=== PATIENT | male | born 1940 | race Two or more races ===

== ENCOUNTER 2024-12-02 08:10 | Inpatient (IN) | payer OTHER, SELFPAY ==
[2024-11-30] VITALS (7 sets, daily range): BP systolic 136–173; BP diastolic 81–97; BMI 27.5; BMI 25.8
[2024-11-30 14:15] LABS: % Basophils 0.5 % (0-2); % Eosinophils 0.9 % (0-6); % Immature Granulocytes 0.5 % (0-0.5); % Lymphocytes 13.5 % (20.5-51.1); % Monocytes 11.3 % (1.7-9.3); % Neutrophils 73.3 % (42.2-75.2); Absolute Eosinophils 0.1 10^3/uL (0-0.7); Absolute Lymphocytes 0.8 10^3/uL (1.2-3.4); Absolute Monocytes 0.7 10^3/uL (0.1-0.6); Absolute Neutrophils 4.2 10^3/uL (1.4-6.5); Hematocrit 45.4 % (39.0-52.0); Hemoglobin 15.2 g/dL (13.0-18.0); Mean Corp Hgb Conc. 33.5 g/dL (33.0-37.0); Mean Corpuscular Hgb 28.3 pg (27.0-31.0); Mean Corpuscular Volume 84.4 fL (80.0-94.0); Mean Platelet Volume 9.9 fL (7.4-10.4); Nucleated Red Blood Cells % 0 % (-); Platelet Count 149 10^3/uL (130-400); Red Blood Cell Count 5.38 10^6/uL (4.70-6.10); Red Cell Dist. Width 13.9 % (11.5-14.5); White Blood Cell Count 5.8 10^3/uL (4.8-10.8)
[2024-11-30 14:27] LABS: Urine Albumin 2+ (Neg - Trace); Urine Bilirubin Negative (Negative); Urine Character Clear (Clear); Urine Color Yellow; Urine Glucose Negative (Negative); Urine Ketone Negative (Negative); Urine Leukocyte 1+ (Negative); Urine Nitrite Negative (Negative); Urine Occult Blood 3+ (Negative); Urine Specific Gravity 1.015 (<1.030); Urine Urobilinogen Negative (Neg - 1+); Urine pH 6.5 (5.0-9.0)
[2024-11-30 14:30] LABS: COVID-19 Antigen Negative (Negative)
[2024-11-30 14:34] LABS: Urine Mucus Few
[2024-11-30 14:35] LABS: Urine Hyaline Cast 0-2 /LPF (0-2); Urine Squamous Cell 16-20 /LPF (Few)
[2024-11-30 14:36] LABS: Urine Red Blood Cell 26-30 /HPF (0-2)
[2024-11-30 14:38] LABS: Urine Bacteria Moderate (Negative)
[2024-11-30 14:38] LABS: ALT (SGPT) 46 U/L (0-50); AST (SGOT) 44 U/L (17-59); Albumin 4.2 g/dl (3.5-5.0); Alkaline Phosphatase 77 U/L (38-126); Blood Urea Nitrogen 20 mg/dl (9-20); Calcium 9.3 mg/dl (8.4-10.2); Carbon Dioxide 29 mmol/L (22-30); Chloride 105 mmol/L (98-107); Estimated Creatinine Clearance 38 ml/min; Glucose 99 mg/dl (70-99); Magnesium 2.1 mg/dl (1.6-2.3); Potassium 4.3 mmol/L (3.5-5.1); Sodium 142 mmol/L (135-145); Total Protein 6.6 g/dl (6.3-8.2); eGFR 54.17
[2024-11-30] MEDS: TYLENOL 650 MG PO ×2 (15:24→22:18)
--- NOTE | 2024-11-30 15:24 | ED.GENMED ---
History of Present Illness
General
Chief Complaint: Weakness
Source: patient
Exam Limitations: none
Time Seen by Provider: 11/30/24 14:13
Nursing documentation reviewed up to this point in time: agreed with
History of Present Illness
History of Present Illness:
Patient with history of dementia and Parkinson disease, frequent falls secondary to gait abnormality, presents to ED from home, accompanied by his , secondary to profound generalized weakness over the past 5 days, since losing balance and
falling backwards, landing on his buttocks 5 days ago. Patient did not hit his head, and it was witnessed by multiple faint members. Since then, patient has had intermittent neck and upper back pain. There was initial weakness noted, but had
improved until yesterday, when states that he had hard time weightbearing due to weakness. Patient was not complaining of pain at that time. Denies loss of appetite. Denies other recent illness. At the time of evaluation ED, patient is
alert and awake and has no complaints.
Review of Systems
Review of Systems
Allergies reviewed?: Yes
All Other Systems: ROS reviewed and negative except as documented in HPI and ROS
Constitutional: Reports no symptoms; Denies fever
Respiratory: Reports no symptoms; Denies cough
Cardiac: Reports no symptoms
ABD/GI: Reports no symptoms; Denies abdominal pain or vomiting
Musculoskeletal: Reports neck pain and back pain
Skin: Reports no symptoms
Neurological: Reports weakness; Denies dizzy or headache
Phy Exam
Physical Exam
Physical Exam:
Physical Exam
General: no apparent distress, not acutely ill. afebrile
Head: nc/at. eomi
Neck: supple. normal range of motion. no midline tenderness.
Heart: s1/s2 regular rate and rhythm
Lungs: no acute respiratory distress. clear bilaterally. chest wall nontender to palpation
Abdomen: normal bowel sounds. not tender.
Neuro: alert and oriented. no focal neurological deficits
Skin: no rash
Psychiatric: well kept. interactive and cooperative
Extremities: no edema. no calf tenderness.
Course
Orders/Labs/Results
Orders:
Orders
11/30/24 Breakfast
Regular
At Your Request: Non-Participating
11/30/24 14:05
Comprehensive Metabolic Panel Urgent
Magnesium Urgent
11/30/24 14:06
COVID-19 Antigen Urgent
Source: Nasal Swab
Complete Blood Count/With Diff Urgent
11/30/24 14:07
Urinalysis Reflex To Culture Urgent
Date Specimen was Collected: 11/30/24
Time Specimen was Collected: 13:57
Urine Microscopic Reflex Cult Urgent
Influenza A+B Rapid Molecular Urgent
STARLA Source: Nasal Swab
Specimen Description:
Date Specimen was Collected: 11/30/24
Time Specimen was Collected: 13:57
Urine Culture Urgent
STARLA Source: U
Specimen Description:
Date Specimen was Collected: 11/30/24
Time Specimen was Collected: 13:57
11/30/24 14:43
Acetaminophen [Tylenol] 650 mg PO NOW STA
Physical Therapy Consult [Pt Eval And Treat] Urgent
Activity Level: Ambulate
11/30/24 15:27
CR Chest - 2 Views Urgent
Comment:
Reason For Exam: weakness
11/30/24 16:42
Admit/Transfer Patient As Directed
Co-Sign Provider:
Level of Care: Observation services
Assign to:: Medical/Surgical
Physician / Group: [email or web address],lara
Diagnosis: ambulatory dysfunction
Code Status As Directed
Resuscitation Status: Full Code
PRN Pain Medication Management As Directed
May give lesser potent ordered pain med per pt: Yes
preference::
Protocol:: Medication orders for pain may be administered in a
manner that supports deferring to patient preference
when the pt is:
- Requesting an ordered lesser potent pain medication.
Least to most potent pain medications are defined
as: acetaminophen < NSAID < tramadol < opioids
(morphine, oxycodone, hydromorphone).
- Requesting a lesser dose of the same medication IF
ORDERED.
- Requesting a less intrusive route of administration
if both routes are prescribed by the provider (PO <
IV).
11/30/24 18:11
Acetaminophen [Tylenol] 650 mg PO Q4HPRN PRN
Bisacodyl [Dulcolax] 10 mg RECTAL [id number] PRN
Docusate W/Senna [Senokot-S] 1 tablet PO BIDPRN PRN
Enoxaparin Sodium [Lovenox] 40 mg SC QPM
HydrALAZINE [Apresoline] 5 mg IV Q6HPRN PRN
Polyethylene Glycol Powder [Miralax] 17 grams PO DAILYPRN PRN
11/30/24 18:11
Case Management Consult ONCE
Case Management Consult: Discharge Planning
Activity As Directed
Activity Level: As Tolerated
Vital Signs As Directed
Frequency: Per unit guidelines
Ot Eval And Treat Routine
DX Deep Vein Thrombosis Video Routine
Abnormal Lab Results
11/30/24 11/30/24
14:06 14:07
Absolute Lymphs (auto) 0.8 L 10^3/uL
(1.2-3.4)
Absolute Monos (auto) 0.7 H 10^3/uL
(0.1-0.6)
Lymphocytes % 13.5 L %
(20.5-51.1)
Monocytes % 11.3 H %
(1.7-9.3)
Ur Occult Blood Reflex 3+ A
(Negative)
Leukocyte Esterase Rfl 1+ A
(Negative)
Urine RBC 26-30 A /HPF
(0-2)
Urine Bacteria (Reflex) Moderate A
(Negative)
Urine Albumin (Reflex) 2+ A
(Neg - Trace)
11/30/24 14:06
11/30/24 14:05
Vital Signs
Initial and Last Documented VS:
Initial Vital Signs
Temp Pulse Resp BP Pulse Ox
98.2 F 91 16 167/95 98
11/30/24 12:24 11/30/24 12:24 11/30/24 12:24 11/30/24 12:24 11/30/24 12:24
Last Documented Vital Signs
Temp Pulse Resp BP Pulse Ox
98.5 F 78 18 162/83 97
11/30/24 18:20 11/30/24 18:20 11/30/24 18:20 11/30/24 18:20 11/30/24 18:20
MDM/Problems Addressed
MDM/Problems Addressed:
Patient with an unremarkable workup in ED, including blood work and urinalysis. Unfortunately, when evaluated by physical therapy, patient unable to bear weight and deemed unsafe to discharge home at this time. This is likely that he may have an
exacerbation of his underlying Parkinson's disease, but difficult to exclude some other entities. As such, patient will be admitted for further evaluation and treatment.
*Critical Care Note
Total Time (30-74mins, 75-104mins- exclusive of procedures): Not Applicable
ED Attending Note
-
Portions of this chart may have been created with voice recognition software.� Occasional wrong word or��sound alike� substitutions may have occurred due to the inherent limitations of voice recognition software.
Discharge Plan
Departure
Patient Disposition: Admit
Date of Disposition: 11/30/24
Time of Disposition: 16:21
Admit to: Med/Surg
Presentation/result/management discussed w/ accepting MD/DO: Hospitalist
Discharge Problem:
Weakness, Ambulatory dysfunction
Interventions
Interventions:
*Risk Screen - Suicide Last Done: 11/30/24 12:24
*General Assessment Last Done: 11/30/24 13:00
*Neglect/Abuse Screening Last Done: 11/30/24 12:24
*ED- Fall Risk Assessment Last Done: 11/30/24 13:00
*Nursing Disposition Last Done: 11/30/24 17:21
ED- Cardiac Assessment Last Done: 11/30/24 13:00
ED- Neurological Assessment Last Done: 11/30/24 13:00
ED- Pulmonary Assessment Last Done: 11/30/24 13:00
Discharge Date and Time
Discharge Date/Time: 11/30/24 18:10
--- NOTE | 2024-11-30 15:30 | EDRN ---
physical therapy currently at the pts bedside
--- NOTE | 2024-11-30 16:55 | HPS.HSE ---
Family Physician
-
Family Physician: Chris Maloney
Chief Complaint
-
Fall, weak and unable to wt bear
History of Present Illness
I could not get any information from the patient due to dementia
Information gathered by chart review and speaking with the ER staff and family
HPI
84M from Home with chr gait dysfunction , HX dementia and Parkinson disease, frequent falls secondary to gait abnormality, seen at ED from home, accompanied by his :
- reports losing balance and falling backwards, landing on his buttocks 5 days ago.
- reports profound generalized weakness over the past 5 days
- denied hit his head due to observed fall witnessed by multiple family members.
- Since then, patient has had intermittent neck and upper back pain.
- There was initial weakness noted, but had improved until yesterday
- states that he had hard time weightbearing due to weakness.
ROS:
Patient was not complaining of pain at that time.
Denies loss of appetite.
Denies other recent illness.
Medical History
Past Medical History
Past Medical History: Reports Dementia
Additional Past Medical History:
Prkinson dz, chr gait dysfunction, frequent falls
Past Surgical History: Reports Other
Additional Past Surgical History:
Not avaibale
Social History
Unable to obtain full social history at this time due to: Dementia
Family History
Family History: Not pertinent
Allergies / Home Medications
Allergies reflects when Allergies were last updated in [employer].
Home Medications with original date entered in [employer]
Allergy/Medication List:
Allergies
Allergy/AdvReac Type Severity Reaction Status Date / Time
No Known Allergies Allergy Verified 11/30/24 12:28
If medication reconciliation has not been performed, why?: Medication List N/A
Review of Systems
-
Constitutional: Reports No Symptoms
EENT: Reports No Symptoms
Respiratory: Reports No Symptoms
Cardiac: Reports No Symptoms
Abdomen/GI: Reports No Symptoms
: Reports No Symptoms
Musculoskeletal: Reports No Symptoms
Skin: Reports No Symptoms
Neurological: Reports No Symptoms
Endocrine: Reports No Symptoms
Hematologic/Lymphatic: Reports No Symptoms
Psych: Reports No Symptoms
Physical Exam
Vital Signs
Vital Signs
Temp Pulse Resp BP Pulse Ox
99.2 F 80 25 173/90 98
11/30/24 13:00 11/30/24 15:45 11/30/24 15:45 11/30/24 15:08 11/30/24 15:45
Physical Exam
General: Well Developed, Well Nourished and No Apparent Distress
HEENT: NormoCephalic, Moist mucous membranes and Atraumatic
Respiratory: Clear
Cardiac: S1/S2 and Regular Rhythm; No Murmur or Rub
GI: Soft, Non Tender, Non Distended and Normal Bowel Sounds; No Organomegaly
Rectal: Deferred by Provider
Musculoskeletal: No Clubbing, No Cyanosis and No Edema
Skin: No Rash
Neuro: Nonfocal/grossly intact
Laboratory Results
-
11/30/24 14:06
11/30/24 14:05
Laboratory Results
Total Bilirubin 1.0 mg/dl (0.2-1.3) 11/30/24 14:05
AST 44 U/L (17-59) 11/30/24 14:05
ALT 46 U/L (0-50) 11/30/24 14:05
Alkaline Phosphatase 77 U/L (38-126) 11/30/24 14:05
Data Reviewed
-
Lab Data: Labs Reviewed by me
Impression/Plan
-
Selected Entries
11/30/24
12:24 11/30/24
13:00
Temp 98.2 F
Pulse 91
Resp Rate 16
Blood pressure 167/95 154/82
SaO2 98 98
Oxygen Mode of Delivery Room air
Lab
11/30/24 11/30/24 11/30/24
14:05 14:06 14:07
WBC 5.8
Hgb 15.2
Plt Count 149
Sodium 142
Potassium 4.3
Chloride 105
Carbon Dioxide 29
BUN 20
Creatinine 1.3
eGFR 54.17
AST 44
ALT 46
Leukocyte Esterase Rfl 1+ A
Urine RBC 26-30 A
Urine WBC (Reflex) 6-10
Ur Squamous Epith Cells 16-20
Urine Bacteria (Reflex) Moderate A
Urine Albumin (Reflex) 2+ A
NEG Flu A & B
NEG Covid
CXR ; report pending
NO PRIOR hospitalist admission:
ASSESSMENT & PLAN
Pending Rx reconciliation
Weakness and general debility s/p observed falls by several family members: head not hit
Somewhat acute on chronic ambulatory dysfunction ; suspect deconditioning elderly
- Unremarkable workup in ED including blood work and urinalysis.
- NEG Covid. NE Flu A and B
- Seen in ED by PT suggest unsafe to be discharged home due to unable to bear weight
- PT
- CRM consult
Current Cr 1.3, eGFR 54 of unknown chronicity : acute vs CKD 2/3a
- Gentle IV NS and observe Cr and strength
HX dementia
HX Parkinson disease ; with any progression ?
Frequent falls secondary to gait abnormality
- Pending Rx reconciliation
DVT Px: LMWH
Full code
Obs MS
--- NOTE | 2024-11-30 17:20 | EDRN ---
this RN called the receiving unit and notified them that paper report was going to be tubed up
[2024-11-30] MEDS: NSS 1000 IV (18:55)
[2024-11-30] MEDS: LOVENOX 40 MG SC (18:55)
[2024-11-30] MEDS: COLACE 100 MG PO (20:57)
[2024-11-30] MEDS: ZOLOFT 50 MG PO (20:58)
[2024-11-30] MEDS: NAMENDA 10 MG PO (20:58)
[2024-11-30] MEDS: SINEMET 25-100 2 TABLET PO (20:58)
[2024-11-30] MEDS: ARICEPT 10 MG PO (20:58)
[2024-11-30] MEDS: XALATAN OPHTHALMIC SOLUTION 1 DROP BOTH EYES (21:10)
--- NOTE | 2024-11-30 22:40 | PTCARENOTE ---
Patient has a temp- 101.9 and given patient Tylenol as ordered. Donell CHARLTON made aware of temp.
[2024-12-01] MEDS: TYLENOL 650 MG PO ×2 (05:31→13:43)
[2024-12-01] MEDS: NSS 1000 IV ×2 (05:32→18:12)
--- NOTE | 2024-12-01 05:57 | W.PN.UPDATE ---
Update Note
Progress Note Update
Patient w/fevers t/o night 101.5 at 2300, treated w/Tylenol and temp 102.0 at 5:34 am, again treated w/Tylenol. Blood cx ordered, CBC and BMP ordered, awaiting results. CXR taken 11/30 @ 19:34 showed No acute disease of the chest. Mild cardiomegaly.
[2024-12-01 07:00] VITALS: BP 143/84
[2024-12-01 07:18] LABS: Hemoglobin 13.7 g/dL (13.0-18.0); Mean Corp Hgb Conc. 33.4 g/dL (33.0-37.0); Mean Corpuscular Hgb 28.1 pg (27.0-31.0); Mean Corpuscular Volume 84.2 fL (80.0-94.0); Mean Platelet Volume 10.2 fL (7.4-10.4); Platelet Count 144 10^3/uL (130-400); Red Blood Cell Count 4.87 10^6/uL (4.70-6.10); Red Cell Dist. Width 13.7 % (11.5-14.5); White Blood Cell Count 5.7 10^3/uL (4.8-10.8)
[2024-12-01] MEDS: SINEMET 25-100 2 TABLET PO ×3 (07:52→21:14)
[2024-12-01] MEDS: THERAGRAN 1 TABLET PO (07:53)
[2024-12-01] MEDS: COLACE 200 MG PO (07:53)
[2024-12-01] MEDS: SENOKOT 17.2 MG PO (07:53)
[2024-12-01] MEDS: NAMENDA 10 MG PO ×2 (07:53→20:51)
[2024-12-01 08:05] LABS: Blood Urea Nitrogen 18 mg/dl (9-20); Calcium 8.4 mg/dl (8.4-10.2); Carbon Dioxide 23 mmol/L (22-30); Chloride 107 mmol/L (98-107); Estimated Creatinine Clearance 50 ml/min; Glucose 91 mg/dl (70-99); Potassium 3.9 mmol/L (3.5-5.1); Sodium 137 mmol/L (135-145); eGFR > 60.00
[2024-12-01] MEDS: ROCEPHIN 1000 MG IV (10:32)
[2024-12-01] MEDS: STERILE WATER FOR INJECTION 10 ML IV (10:33)
--- NOTE | 2024-12-01 12:34 | W.PN.HOSP.TC ---
Today's Communication/Plan
-
Started Rocephin
Assessment / Plan
Assessment / Plan
Assessment/plan
Sepsis secondary to UTI
Patient meets sepsis criteria on admission
Heart rate 90
Temperature max 102
Source of infection is UTI
Chest x-ray shows no pneumonia
IV antibiotic in form of Rocephin
Blood culture pending
Urine culture pending
Status post fall - acute on chronic ambulatory dysfunction
Denies hitting head.
Fall precautions.
PT/OT consulted in the ER who recommended SNF.
Social service for discharge planning.
HX dementia
Continue Aricept-Namenda
HX Parkinson disease
Continue Sinemet
CODE STATUS: Full code
DVT prophylaxis: Lovenox
Diet: Regular diet
Total time spent on today's encounter was 55 minutes which included time spent in counseling the patient/family regarding diagnosis and treatment plan as listed above, goals of care, and symptom management. Case was discussed with nursing staff,
specialists, and care coordinators/case management. All labs and imaging personally reviewed by me. Remainder the time spent in detailed review of previous records, lab data, imaging, and other medical provider documentation.
Anticipated Discharge: 24 - 48 hours
Subjective/Interval History
-
Date of Service: December 01, 2024
Patient seen and examined at bedside.
Patient seen while eating breakfast.
Overnight patient had fever-blood culture and urine culture drawn
started on Rocephin
Objective Data
-
Labs:
Laboratory Results
12/01/24
07:06
WBC 5.7
Hgb 13.7
Hct 41.0
Plt Count 144
Sodium 137
Potassium 3.9
Chloride 107
Carbon Dioxide 23
BUN 18
Creatinine 1.1
Glucose 91
Calcium 8.4
Vital Signs:
Vital Signs
Temp Pulse Resp BP Pulse Ox
99.5 F 85 20 143/84 96
12/01/24 07:00 12/01/24 07:00 12/01/24 07:00 12/01/24 07:00 12/01/24 07:00
I&O
11/30/24 12/01/24 12/02/24
06:59 06:59 06:59
Intake Total 1200 / 1200
Balance 1200 / 1200
Physical Exam
-
General: Well Developed, Well Nourished, No Apparent Distress and Comfortable
HEENT: Normocephalic, Atraumatic, Moist Mucous Membranes, No Ptosis, PERRLA and Nose Appears Normal
Respiratory: Clear to Auscultation and Non Labored Respirations
Cardiac: Regular Rhythm and S1/S2
Breast: Deferred by me
GI: Soft, Nontender, Nondistended and Normal Bowel Sounds
Genito-urinary: No Costovertebral Tender
Musculoskeletal: No Clubbing, No Cyanosis and No Edema
Skin: Warm
Neuro: Awake, Alert, No Motor Deficits and Other
Psych: Calm
Data Reviewed
-
Diagnostic Radiology: Image personally visualized and interpreted and Report Reviewed by me
CT Scan: Image personally visualized and interpreted and Report Reviewed by me
Ultrasound: Image personally visualized and interpreted and Report Reviewed by me
MRI: Image personally visualized and interpreted and Report Reviewed by me
Medical Tests (Nuc Med, Echo etc): Image personally visualized and interpreted and Report Reviewed by me
Labs: Labs Reviewed by me
Old Records: Reviewed
[2024-12-01 15:00] VITALS: BP 158/90
[2024-12-01] MEDS: TORADOL 30 MG IV (15:32)
[2024-12-01] MEDS: LOVENOX 40 MG SC (17:12)
[2024-12-01] MEDS: XALATAN OPHTHALMIC SOLUTION 1 DROP BOTH EYES (17:19)
[2024-12-01] MEDS: ARICEPT 10 MG PO (20:50)
[2024-12-01] MEDS: COLACE 100 MG PO (20:51)
[2024-12-01] MEDS: ZOLOFT 50 MG PO (20:51)
[2024-12-01 23:30] VITALS: BP 129/64
[2024-12-02] MEDS: TYLENOL 650 MG PO (03:54)
[2024-12-02] MEDS: NSS 1000 IV ×2 (06:10→20:55)
[2024-12-02 08:07] VITALS: BP 147/93
[2024-12-02 08:24] LABS: Hemoglobin 13.2 g/dL (13.0-18.0); Mean Corpuscular Hgb 28.3 pg (27.0-31.0); Mean Corpuscular Volume 85.7 fL (80.0-94.0); Mean Platelet Volume 10.9 fL (7.4-10.4); Platelet Count 130 10^3/uL (130-400); Red Blood Cell Count 4.67 10^6/uL (4.70-6.10); Red Cell Dist. Width 13.8 % (11.5-14.5); White Blood Cell Count 4.4 10^3/uL (4.8-10.8)
[2024-12-02 08:40] LABS: Blood Urea Nitrogen 23 mg/dl (9-20); Calcium 8.1 mg/dl (8.4-10.2); Carbon Dioxide 23 mmol/L (22-30); Chloride 107 mmol/L (98-107); Estimated Creatinine Clearance 46 ml/min; Glucose 85 mg/dl (70-99); Sodium 138 mmol/L (135-145); eGFR 59.63
[2024-12-02] MEDS: THERAGRAN 1 TABLET PO (08:59)
[2024-12-02] MEDS: COLACE 200 MG PO (08:59)
[2024-12-02] MEDS: NAMENDA 10 MG PO ×2 (08:59→20:55)
[2024-12-02] MEDS: SENOKOT 17.2 MG PO (08:59)
[2024-12-02] MEDS: SINEMET 25-100 2 TABLET PO ×3 (08:59→21:09)
[2024-12-02] MEDS: ROCEPHIN 1000 MG IV (09:01)
[2024-12-02] MEDS: STERILE WATER FOR INJECTION 10 ML IV (09:01)
[2024-12-02 10:33] VITALS: BP 165/89; PULSE 94; O2SAT 97
[2024-12-02 10:46] VITALS: BP 165/89; PULSE 94; O2SAT 97
--- NOTE | 2024-12-02 13:00 | W.PN.HOSP.TC ---
Today's Communication/Plan
-
Patient still running fever
Assessment / Plan
Assessment / Plan
Assessment/plan
Sepsis secondary to UTI
Patient meets sepsis criteria on admission
Heart rate 90
Temperature max 102
Source of infection is UTI
Chest x-ray shows no pneumonia
IV antibiotic in form of Rocephin
Blood culture pending
Urine culture pending
Status post fall - acute on chronic ambulatory dysfunction
Denies hitting head.
Fall precautions.
PT/OT consulted in the ER who recommended SNF.
Social service for discharge planning.
HX dementia
Continue Aricept-Namenda
HX Parkinson disease
Continue Sinemet
CODE STATUS: Full code
DVT prophylaxis: Lovenox
Diet: Regular diet
Total time spent on today's encounter was 55 minutes which included time spent in counseling the patient/family regarding diagnosis and treatment plan as listed above, goals of care, and symptom management. Case was discussed with nursing staff,
specialists, and care coordinators/case management. All labs and imaging personally reviewed by me. Remainder the time spent in detailed review of previous records, lab data, imaging, and other medical provider documentation.
Anticipated Discharge: Within 24 hours
Subjective/Interval History
-
Date of Service: December 02, 2024
Patient seen and examined at bedside, denies any chest pain or shortness of breath, no abdominal pain, no nausea, no vomiting, no diarrhea or constipation.
Still with mild degree fever overnight blood cultures are negative so far
Objective Data
-
Labs:
Laboratory Results
12/02/24
07:18
WBC 4.4 L
Hgb 13.2
Hct 40.0
Plt Count 130
Sodium 138
Potassium 4.0
Chloride 107
Carbon Dioxide 23
BUN 23 H
Creatinine 1.2
Glucose 85
Calcium 8.1 L
Vital Signs:
Vital Signs
Temp Pulse Resp BP Pulse Ox
99.8 F 77 18 147/93 97
12/02/24 11:26 12/02/24 08:07 12/02/24 08:07 12/02/24 08:07 12/02/24 08:07
I&O
12/01/24 12/02/24 12/03/24
06:59 06:59 06:59
Intake Total 1200 / 1200 480 / 480
Output Total 200 / 200
Balance 1200 / 1200 280 / 280
Physical Exam
-
General: Well Developed, Well Nourished, No Apparent Distress and Comfortable
HEENT: Normocephalic, Atraumatic, Moist Mucous Membranes, No Ptosis, PERRLA and Nose Appears Normal
Respiratory: Clear to Auscultation and Non Labored Respirations
Cardiac: Regular Rhythm and S1/S2
Breast: Deferred by me
GI: Soft, Nontender, Nondistended and Normal Bowel Sounds
Genito-urinary: No Costovertebral Tender
Musculoskeletal: No Clubbing, No Cyanosis and No Edema
Skin: Warm
Neuro: Awake, Alert, No Motor Deficits and Other
Psych: Calm
[2024-12-02] MEDS: TORADOL 30 MG IV (15:43)
[2024-12-02] MEDS: APRESOLINE 5 MG IV (15:45)
[2024-12-02 15:57] VITALS: BP 190/104
[2024-12-02 16:21] VITALS: BP 173/91
--- NOTE | 2024-12-02 16:44 | CM ---
Placed a call to patient's , Jenny to obtain information for assessment. She stated that she lives in a single, two story home with no steps to enter and her son and daughter in law live on the property next door as well. Patient was needing
assistance with bathing and dressing but was able to do some of his own personal care and toileting with reminders. He has a stair glide, a shower chair and a w/c but was ambulating independently. Patient's does the communications program manager, cooking,
cleaning and all laundry. Her children also assist with caring for patient and whatever they need as far as communications program manager and transportation. Patient has been to a SNF in the past at [facility] and had a good experience there. Patient's
was also agreeable to referrals being sent out to [facility] and [facility]. Patient has had VN in the past as well.
Patient has a prescription plan and uses, [facility] in [place] for his medications.
His PCP is, Chris Marcum.
Will make referrals and f/u with patient's .
Plan: Case management will continue to follow and assist with discharge planning. SNF when stable.
[2024-12-02] MEDS: XALATAN OPHTHALMIC SOLUTION 1 DROP BOTH EYES (17:12)
[2024-12-02] MEDS: LOVENOX 40 MG SC (17:12)
[2024-12-02] MEDS: ARICEPT 10 MG PO (20:54)
[2024-12-02] MEDS: COLACE 100 MG PO (20:54)
[2024-12-02] MEDS: ZOLOFT 50 MG PO (20:55)
--- NOTE | 2024-12-02 21:23 | W.PN.UPDATE ---
Update Note
Progress Note Update
Patient is complaining of SOB, wheezing. bp 173/91, hr 99, SPO2 96% on RA, febrile with temp 102.9
-On assessment, patient noted with cough, coarse lung sound and audible inspiratory and expiratory wheezing.
-Chest x-ray, covid, flu, duo nebs, PRN Robitussin and IV Tylenol ordered.
-Patient still wheezing with no changes after neb treatment, will give on time dose of IV Decadron 4mg now.
-Covid and flu (Neg )
Chest x-ray result shows
-There is a new opacity projecting over the mid/lower left lung which likely represents pneumonia
-Will start the patient on azithromycin 500 mg IV q 24 hrs.
[2024-12-02] MEDS: DUONEB 3 ML INH (22:06)
[2024-12-02] MEDS: ROBITUSSIN DM 10 ML PO (22:42)
[2024-12-02] MEDS: DECADRON 4 MG IV (22:42)
[2024-12-02 22:47] LABS: COVID-19 Antigen Negative (Negative)
[2024-12-02] MEDS: OFIRMEV 100 IV (23:03)
[2024-12-02] MEDS: ZITHROMAX INFUSION 250 IV (23:56)
[2024-12-03] VITALS (9 sets, daily range): BP systolic 133–215; BP diastolic 71–133; PULSE 2–127; BMI 27.1
--- NOTE | 2024-12-03 03:25 | PTCARENOTE ---
Pt noted to have audible wheezing and very harsh cough. Discussed care with condominium association manager PROTECTIVE SIGNAL OPERATOR. Pt had CXR, Zithromax Iv, dexamethasone IV and Neb tx. IV Tylenol given for T of 102.9 with (+) results. Covid and Flu swabs sent as ordered. Cold tx applied and
2L O2 via NC applied. No acute distress noted thus far. Will continue to monitor.
[2024-12-03 08:59] LABS: Hemoglobin 14.4 g/dL (13.0-18.0); Mean Corp Hgb Conc. 32.7 g/dL (33.0-37.0); Mean Corpuscular Hgb 28.2 pg (27.0-31.0); Mean Corpuscular Volume 86.3 fL (80.0-94.0); Mean Platelet Volume 10.7 fL (7.4-10.4); Platelet Count 147 10^3/uL (130-400); Red Cell Dist. Width 13.8 % (11.5-14.5); White Blood Cell Count 4.1 10^3/uL (4.8-10.8)
[2024-12-03] MEDS: NSS 1000 IV (09:05)
[2024-12-03] MEDS: SINEMET 25-100 2 TABLET PO ×3 (09:05→21:15)
[2024-12-03] MEDS: THERAGRAN 1 TABLET PO (09:06)
[2024-12-03] MEDS: COLACE 200 MG PO (09:06)
[2024-12-03] MEDS: NAMENDA 10 MG PO ×2 (09:06→21:15)
[2024-12-03] MEDS: SENOKOT 17.2 MG PO (09:06)
[2024-12-03] MEDS: ROCEPHIN 1000 MG IV (09:07)
[2024-12-03] MEDS: STERILE WATER FOR INJECTION 10 ML IV (09:07)
[2024-12-03 09:44] LABS: Blood Urea Nitrogen 21 mg/dl (9-20); Calcium 8.2 mg/dl (8.4-10.2); Carbon Dioxide 23 mmol/L (22-30); Chloride 108 mmol/L (98-107); Estimated Creatinine Clearance 50 ml/min; Glucose 105 mg/dl (70-99); Potassium 4.2 mmol/L (3.5-5.1); Sodium 140 mmol/L (135-145); eGFR > 60.00
--- NOTE | 2024-12-03 11:46 | CM ---
Received call from Coral in admissions at [facility] who stated that is patient is ready today, she can accept. Spoke with attending who stated that patient not medically cleared for discharge quite yet. Spoke with Coral who stated to call her on
the day of discharge to determine bed availability. She will offer a bed if she has one as she has accepted patient. Will need to get auth.
Plan: Case management will continue to follow and assist with discharge planning. SNF when stable.
--- NOTE | 2024-12-03 13:48 | W.PN.HOSP.TC ---
Today's Communication/Plan
-
Started Zithromax
Assessment / Plan
Assessment / Plan
Assessment/plan
Sepsis secondary to pneumonia /UTI
Patient meets sepsis criteria on admission
Heart rate 90
Temperature max 102
Source of infection is UTI/community-acquired pneumonia
Initial chest x-ray shows no pneumonia
Initially started on IV antibiotic in form of Rocephin
Blood culture negative to date
Urine culture negative to date
12/03
Developed coughing and shortness of breath overnight.
Still with fever.
X-ray shows new opacity projecting over the mid/lower left lung which likely represents pneumonia.
CT chest shows:
1. SEVERE PNEUMONIA in the LEFT UPPER LOBE and LEFT LOWER LOBE.
2. Mild pneumonia in the right upper lobe.
3. Mild cardiomegaly.
4. Moderate calcific atherosclerotic plaque in the coronary arteries.
5. Severe calcific atherosclerotic plaque in the thoracic aorta.
6. 2.4 cm low-attenuation lesion in the liver containing peripheral calcification. Diagnostic possibilities are (1) a primary or metastatic hepatic tumor, (2) a hepatic abscess, or (3) a complex cyst or chronic intrahepatic hematoma.
Azithromycin added to Rocephin
Status post fall - acute on chronic ambulatory dysfunction
Denies hitting head.
Fall precautions.
PT/OT consulted in the ER who recommended SNF.
Social service for discharge planning.
HX dementia
Continue Aricept-Namenda
HX Parkinson disease
Continue Sinemet
CODE STATUS: Full code
DVT prophylaxis: Lovenox
Diet: Regular diet
Family communication: Discussed with at bedside.
Total time spent on today's encounter was 55 minutes which included time spent in counseling the patient/family regarding diagnosis and treatment plan as listed above, goals of care, and symptom management. Case was discussed with nursing staff,
specialists, and care coordinators/case management. All labs and imaging personally reviewed by me. Remainder the time spent in detailed review of previous records, lab data, imaging, and other medical provider documentation.
Anticipated Discharge: 24 - 48 hours
Subjective/Interval History
-
Date of Service: December 03, 2024
Patient seen and examined at bedside, patient complained of shortness of breath on coughing overnight, associated with wheezing.
The chest x-ray shows pneumonia.
Started on Zithromax.
CT chest done today shows :
1. SEVERE PNEUMONIA in the LEFT UPPER LOBE and LEFT LOWER LOBE.
2. Mild pneumonia in the right upper lobe.
3. Mild cardiomegaly.
4. Moderate calcific atherosclerotic plaque in the coronary arteries.
5. Severe calcific atherosclerotic plaque in the thoracic aorta.
6. 2.4 cm low-attenuation lesion in the liver containing peripheral calcification. Diagnostic possibilities are (1) a primary or metastatic hepatic tumor, (2) a hepatic abscess, or (3) a complex cyst or chronic intrahepatic hematoma.
Objective Data
-
Labs:
Laboratory Results
12/03/24
07:50
WBC 4.1 L
Hgb 14.4
Hct 44.0
Plt Count 147
Sodium 140
Potassium 4.2
Chloride 108 H
Carbon Dioxide 23
BUN 21 H
Creatinine 1.1
Glucose 105 H
Calcium 8.2 L
Vital Signs:
Vital Signs
Temp Pulse Resp BP Pulse Ox
99.1 F 89 20 147/91 99
12/03/24 07:30 12/03/24 07:30 12/03/24 07:30 12/03/24 07:30 12/03/24 09:01
I&O
12/02/24 12/03/24 12/04/24
06:59 06:59 06:59
Intake Total 480 / 480 540 / 540
Output Total 200 / 200 100 / 100
Balance 280 / 280 440 / 440
Physical Exam
-
General: Well Developed, Well Nourished, No Apparent Distress and Comfortable
HEENT: Normocephalic, Atraumatic, Moist Mucous Membranes, No Ptosis, PERRLA and Nose Appears Normal
Respiratory: Wheezes, Rales, Rhonchi, Crackles and Non Labored Respirations
Cardiac: Regular Rhythm and S1/S2
Breast: Deferred by me
GI: Soft, Nontender, Nondistended and Normal Bowel Sounds
Genito-urinary: No Costovertebral Tender
Musculoskeletal: No Clubbing, No Cyanosis and No Edema
Skin: Warm
Neuro: Awake, Alert, No Motor Deficits and Other
Psych: Calm
Data Reviewed
-
Diagnostic Radiology: Image personally visualized and interpreted and Report Reviewed by me
CT Scan: Image personally visualized and interpreted and Report Reviewed by me
Ultrasound: Image personally visualized and interpreted and Report Reviewed by me
MRI: Image personally visualized and interpreted and Report Reviewed by me
Medical Tests (Nuc Med, Echo etc): Image personally visualized and interpreted and Report Reviewed by me
Labs: Labs Reviewed by me
Old Records: Reviewed
[2024-12-03] MEDS: DUONEB 3 ML INH ×3 (13:56→19:31)
[2024-12-03] MEDS: TYLENOL 650 MG PO ×2 (15:09→21:17)
--- NOTE | 2024-12-03 16:06 | PTCARENOTE ---
Pt AAO x3; forgetful at times. LEBLANC; able to turn self with encouragement. BP currently 215/133;; pt with (+) audible wheezing/tachypneic; pulse ox 0n nc 2 lpm 97%, pt frequently removes NC. Dr. Sanchez notified of pt's resp status. Abd large,
soft, lucero PO, appetite poor. Incont urine; condom cath # 25 P/I. Temp 102.9 PO; Tylenol 650 mg PO given; will continue to monitor.
--- NOTE | 2024-12-03 16:21 | CON.PUL ---
Consultation
Consultation Request
Date/Time Consultation Requested: 12/03/2024
Date/Time Consultation Performed: 12/02/2024
Requesting Provider: Yaima Sanchez
Performing Provider: Nafisa Jones
Reason for Consultation: Shortness of breath
Medical History
-
Chief Complaint: Shortness of breath
History of Present Illness:
Patient is a84 y/o gentleman who was brought to the hospital for weakness and falls. He was noted to have Pneumonia and pyuria. He was started on Rocephin. Overnight, he became more short of breath with wheezing. CT was performed which was
suggestive of multifocal pneumonia. Due to increased wheezing and increased work of breathing, pulmonary consult was requested for further input.
Patient unable to provide any history, information obtained from at bedside.
Past Medical History: Reports Dementia
Additional Past Medical History:
Prkinson dz, chr gait dysfunction, frequent falls
Past Surgical History: Reports Other
Additional Past Surgical History:
Not avaibale
Social History
Unable to obtain full social history at this time due to: Dementia
Family History
Family History: Not pertinent
Allergies / Home Medications
Allergies / Home Medications
Allergies
Allergy/AdvReac Type Severity Reaction Status Date / Time
No Known Allergies Allergy Verified 11/30/24 12:28
Home Medications
�Medication �Instructions �Recorded �Confirmed �Last Taken �Type
carbidopa 25 mg-levodopa 100 mg 2 tab PO TID Multiple Sclerosis 11/30/24 11/30/24 11/29/24 History
tablet
docusate sodium 100 mg capsule 100 mg PO HS Gastrointestinal Issue 11/30/24 11/30/24 11/29/24 History
(Colace)
docusate sodium 100 mg capsule 200 mg PO DAILY Gastrointestinal 11/30/24 11/30/24 11/29/24 History
(Colace) Issue
donepezil 10 mg tablet 10 mg PO HS Neurological Condition 11/30/24 11/30/24 11/29/24 History
latanoprost 0.005 % eye drops 1 drp BOTH EYES QPM Eye Condition 11/30/24 11/30/24 11/29/24 History
memantine 10 mg tablet 10 mg PO BID Neurological Condition 11/30/24 11/30/24 11/29/24 History
sennosides 8.6 mg tablet (senna) 17.2 mg PO HS Gastrointestinal 11/30/24 11/30/24 11/29/24 History
Issue
sertraline 50 mg tablet 50 mg PO HS Multiple Sclerosis 11/30/24 11/30/24 11/29/24 History
therapeutic multivitamin 1 tab PO DAILY Supplement 11/30/24 11/30/24 11/29/24 History
Review of Systems
Vitals / Labs / Diagnostic Testing
Vital Signs
Temp Pulse Resp BP Pulse Ox
101.0 F H 126 20 187/131 97
12/03/24 16:09 12/03/24 16:09 12/03/24 16:09 12/03/24 16:09 12/03/24 16:06
Lab Data
12/03/24 07:50
12/03/24 07:50
Microbiology
12/01/24 07:28 Blood/Venous Blood Culture - Preliminary
No Growth in 48 hours- Final report to follow
12/01/24 07:06 Blood/Venous Blood Culture - Preliminary
No Growth in 48 hours- Final report to follow
12/03/24 03:17 Nasal Swab Influenza Types A & B (YOANDY) - Final
Negative for Influenza A & B, NAAT
Negative results must be combined with clinical observations
and patient history.
Nucleic Acid Amplification test (NAAT)performed on the
[employer] platform.
11/30/24 14:07 Urine Urine Culture - Final
11/30/24 14:07 Nasal Swab Influenza Types A & B (YOANDY) - Final
Negative for Influenza A & B, NAAT
Negative results must be combined with clinical observations
and patient history.
Nucleic Acid Amplification test (NAAT)performed on the
[employer] platform.
Diagnostic Testing:
Physical Exam
-
HEENT: Normocephalic
Cardiovascular: Regular Rhythm
Respiratory: Wheeze (diffuse wheezing ) and Rhonchi
GI: Soft and Non Distended
Neurology: Awake and Alert
Skin: Warm
General: Comfortable
Assessment
-
#1. Multifocal Pneumonia, influenza screen negative. Blood culture for 48 hours negative. COVID-19 screen negative.
-Continue current antibiotics, Rocephin and Azithromycin
-Sputum culture, if able to produce
-Speech/swallow evaluation, as aspiration risk
#2. Acute bronchospasm, likely related to #1
-Solumedrol 80 mg IV stat followed by 40 mg q 12 hrs
-Duoneb qid and Albuterol PRN
-No known h/o COPD/Asthma but has long standing smoking history, might have underlying COPD
-If does not improve in coming hours, low threshold to initiate BIPAP
Other medical diagnoses:
-Parkinsonism
-Dementia
Total time spent on this consultation/encounter __65__ minutes which includes review of history, physical exam, medications, laboratory data, personal review of imaging, extensive review of outpatient records, discussion with care team and
respiratory therapy.
Data:
CT Chest 12/2024: 1. SEVERE PNEUMONIA in the LEFT UPPER LOBE and LEFT LOWER LOBE.
2. Mild pneumonia in the right upper lobe.
3. Mild cardiomegaly.
4. Moderate calcific atherosclerotic plaque in the coronary arteries.
5. Severe calcific atherosclerotic plaque in the thoracic aorta.
6. 2.4 cm low-attenuation lesion in the liver containing peripheral calcification. Diagnostic possibilities are (1) a primary or metastatic hepatic tumor, (2) a hepatic abscess, or (3) a complex cyst or chronic intrahepatic hematoma.
[2024-12-03] MEDS: SOLU-MEDROL PF 80 MG IV (16:49)
[2024-12-03] MEDS: FLUSH (NSS) 1 FLUSH IV ×2 (16:50→17:20)
--- NOTE | 2024-12-03 17:05 | SUR.PHASEI ---
Pt with increased SOB/wheezing; vomited mod amts lt pink/mucoid secretions. Pt given Solumedrol 80 mg IV; resp tx given. BP 209/130; HR 128; RR 32. Legs sl mottled. Dr. Sanchez up to see pt; pt for transfer to IMU. Will continue to monitor.
--- NOTE | 2024-12-03 17:12 | W.PN.UPDATE ---
Update Note
Progress Note Update
4:50
Patient vomited and became tachypneic.
Patient seen and examined at bedside, increased work of breathing.
at bedside.
Patient placed on BiPAP and plan to transfer to IMU.
Discussed with pulmonology team.
Discussed with at bedside regarding CODE STATUS, patient is DNI/DNR.
Patient received steroid, ordered Zofran,
[2024-12-03] MEDS: ZOFRAN 4 MG IV (17:20)
[2024-12-03] MEDS: LOVENOX 40 MG SC (17:21)
[2024-12-03] MEDS: XALATAN OPHTHALMIC SOLUTION 1 DROP BOTH EYES (17:21)
--- NOTE | 2024-12-03 18:16 | PHA.VAN.IN ---
Assessment
- Assessment
Renal Function: Appears similar to baseline
Concomitant Antimicrobials: ZOSYN
- Previous Dosing Experience
Previous Regimen: NONE
AUC Dosing Plan
- Dosing Variables
Dosing Weight (kg): 79.2
Dosing CrCl (ml/min): 50
Vd coefficient (L/kg): 0.7
- Empiric Dosing
Initial / Loading Dose: 1750MG
Maintenance Regimen: 1250MG IV Q24H
Estimated AUC (mcg*h/mL): 508
Estimated Peak (mcg*h/mL): 33.8
Estimated Trough (mcg/ml): 12.0
Estimated Half Life (H): 15.1
Pharmacokinetics Vancomycin I
- -
Patient Age: 84
Patient Sex: Male
Vancomycin Day #: 1
Indication: Pulmonary/Respiratory
Requesting Provider: YOUNG
Height / Weight:
Height 5 ft 9 in
Actual Weight 79.18 kg
- Vital Signs / Lab Results
Temp Pulse Resp BP Pulse Ox
100.3 F 128 32 209/130 95
12/03/24 17:05 12/03/24 17:05 12/03/24 17:05 12/03/24 17:05 12/03/24 17:05
Lab Results - Hematology
12/01/24 12/02/24 12/03/24
07:06 07:18 07:50
WBC 5.7 4.4 L 4.1 L
Lab Results - Chemistry
12/01/24 12/02/24 12/03/24
07:06 07:18 07:50
BUN 18 23 H 21 H
Creatinine 1.1 1.2 1.1
Estimated Creat Clear 50 46 50
Microbiology Results
12/01/24 07:28 Blood Culture - Preliminary
Blood/Venous No Growth in 48 hours- Final report to follow
12/01/24 07:06 Blood Culture - Preliminary
Blood/Venous No Growth in 48 hours- Final report to follow
12/03/24 03:17 Influenza Types A & B (YOANDY) - Final
Nasal Swab Negative for Influenza A & B, NAAT
Negative results must be combined with clinical observations
and patient history.
Nucleic Acid Amplification test (NAAT)performed on the
[employer] platform.
--- NOTE | 2024-12-03 18:38 | PTCARENOTE ---
Pt rom 4th floor. AAOx3 audiable wheezing. Remains on Bipap. Skin is pink and dry nos/s of distress at this time. . Pt using abd muscles to breathe . called to room
--- NOTE | 2024-12-03 18:43 | PTCARENOTE ---
Pt for transfer to IMU. Report called to [facility]IRK. Pt transferred to room 3356 via bed/on Bipap 06/08; all belongings sent with pt.
[2024-12-03] MEDS: VANCOCIN 535 MG IV (19:46)
[2024-12-03] MEDS: ZOSYN 50 IV (19:47)
[2024-12-03] MEDS: ZOLOFT 50 MG PO (21:15)
[2024-12-03] MEDS: COLACE 100 MG PO (21:15)
[2024-12-03 21:54] LABS: Glucose - Point of Care 128 mg/dl (70-99)
[2024-12-04] VITALS (42 sets, daily range): BP systolic 104–170; BP diastolic 64–100; PULSE 2–130; BMI 27.0
[2024-12-04] MEDS: ZOSYN 50 IV ×4 (01:06→18:35)
--- NOTE | 2024-12-04 02:32 | PTCARENOTE ---
Pt with temp of 100.4 and chills at 21:00. PO tylenol given. Pt reported improvement in symptoms within an hour. Oral temp @ 00:40 100.0. Remains on continuous bipap. SaO2 98%. Pt confused/disoriented, makes multiple attempts to remove bipap mask.
Loading dose vanco given. Zosyn q6H. Call martin within reach. VSS. Care ongoing.
--- NOTE | 2024-12-04 03:20 | W.PN.UPDATE ---
Update Note
Progress Note Update
~ 19:30�RN TT that pt heart rate jumping to 160's then goes back down to 90's-100's. Tachycardia associated w/fevers, 100.3 axillary. Tylenol given, HR improved with treatment of fevers.
~3 am - RN TT, pt temp 102.9, ordered Tylenol 1 g IV. Tylenol PO on hold at this time. Repeat temp @ 5 am result 99.1
~5 am - Pt w/sustained HR in the 150's, started at 4:42 am. EKG showed critical test result, high HR, 151. Supraventricular tachycardia, nonspecific ST and T wave abnormality, Abnormal ECG. Patient examined, awakens to verbal stimuli. States he
feels his heart racing. Denies chest pain, pressure, dizziness/lightheadedness, SOB at this time.
Ordered Lopressor 2.5 mg IV x 1. ~ 5:30 am Converted to NSR, HR 84, BP 104/73.
--- NOTE | 2024-12-04 03:25 | PTCARENOTE ---
03:15 oral temp 102.9. YARD INSPECTOR notified. Orders in for IV tylenol, PO tylenol on hold.
[2024-12-04] MEDS: DUONEB 3 ML INH ×5 (03:45→19:27)
[2024-12-04] MEDS: OFIRMEV 100 IV ×2 (03:45→20:11)
[2024-12-04 04:48] LABS: Hematocrit 39.9 % (39.0-52.0); Hemoglobin 13.2 g/dL (13.0-18.0); Mean Corp Hgb Conc. 33.1 g/dL (33.0-37.0); Mean Corpuscular Hgb 28.1 pg (27.0-31.0); Mean Corpuscular Volume 84.9 fL (80.0-94.0); Mean Platelet Volume 10.7 fL (7.4-10.4); Platelet Count 150 10^3/uL (130-400); Red Cell Dist. Width 13.7 % (11.5-14.5); White Blood Cell Count 6.6 10^3/uL (4.8-10.8)
[2024-12-04 05:18] LABS: Blood Urea Nitrogen 27 mg/dl (9-20); Calcium 8.4 mg/dl (8.4-10.2); Carbon Dioxide 22 mmol/L (22-30); Chloride 109 mmol/L (98-107); Estimated Creatinine Clearance 50 ml/min; Glucose 104 mg/dl (70-99); Potassium 4.3 mmol/L (3.5-5.1); Sodium 141 mmol/L (135-145); eGFR > 60.00
[2024-12-04] MEDS: LOPRESSOR 2.5 MG IV (05:22)
--- NOTE | 2024-12-04 05:58 | PTCARENOTE ---
pt sustaining HR in 150-160s. NEAR EASTERN ARCHAEOLOGY LECTURER notified via tiger text. EKG done. EKG result showed SVT. NEAR EASTERN ARCHAEOLOGY LECTURER up to see pt in room. 2.5mg IV lopressor ordered and given. HR down to 70-80s after lopressor but shortly after, HR back up to 130s. NEAR EASTERN ARCHAEOLOGY LECTURER aware. Care
ongoing.
--- NOTE | 2024-12-04 07:34 | PTCARENOTE ---
Unable to verify VS captured from prior shift.
[2024-12-04] MEDS: VANCOCIN 275 MG IV (07:42)
--- NOTE | 2024-12-04 08:11 | PTOTSP ---
Speech Language Pathology
FLIGHT TEST SUPERVISOR orders placed, but pt transferred to IMU afterwards. New FLIGHT TEST SUPERVISOR orders required for evaluation (or for order to be continued upon transfer).
--- NOTE | 2024-12-04 08:23 | PTCARENOTE ---
Addendum entered by Pretty Gardner 12/04/24 13:53:
Pt's HR continues to be labile, from 80's to bursts into 150's. Pt asymptomatic, Dr. Sanchez aware.
Addendum entered by Pretty Gardner 12/04/24 10:51:
Pt's HR remaining elevated, increasing to 150's. Dr Sanchez notified, order received for IVP Cardizem, administered as ordered with good effect. Pt in NSR at this time.
Original Note:
Pt with runs of tachycardia to the 130's on tele monitor. D/w Dr. Sanchez, no further orders received at this time.
--- NOTE | 2024-12-04 09:22 | PHA.VAN.FU ---
Vancomycin Assessment / Plan
- Assessment
Renal Function: Stable (1.1)
WBC's are: WNL (6.6)
In the past 24 hrs, patient has been: Febrile (102.9)
Concomitant Antimicrobials: piperacillin/tazobactam
- Dosing Plan
Continue: Vanco 1250mg Q24H
- Monitoring Plan
No level(s) ordered at this time: Consider in the next few days
- Follow Up
Pharmacy will continue to follow.
Vancomycin Follow UP
- -
Patient Age: 84
Patient Sex: Male
Vancomycin Day #: 2
Indication: Pulmonary/Respiratory
Requesting Provider: YOUNG
Height / Weight:
Height 5 ft 9 in
Actual Weight 83 kg
- Vital Signs / Lab Results
Temp Pulse Resp BP Pulse Ox
99.1 F 137 20 129/100 97
12/04/24 07:05 12/04/24 08:30 12/04/24 08:30 12/04/24 08:30 12/04/24 08:30
Lab Results - Hematology
12/02/24 12/03/24 12/04/24
07:18 07:50 03:50
WBC 4.4 L 4.1 L 6.6
Lab Results - Chemistry
12/02/24 12/03/24 12/04/24
07:18 07:50 03:50
BUN 23 H 21 H 27 H
Creatinine 1.2 1.1 1.1
Estimated Creat Clear 46 50 50
Microbiology Results
12/01/24 07:28 Blood Culture - Preliminary
Blood/Venous No Growth in 72 hours- Final report to follow
12/01/24 07:06 Blood Culture - Preliminary
Blood/Venous No Growth in 72 hours- Final report to follow
12/03/24 03:17 Influenza Types A & B (YOANDY) - Final
Nasal Swab Negative for Influenza A & B, NAAT
Negative results must be combined with clinical observations
and patient history.
Nucleic Acid Amplification test (NAAT)performed on the
[employer] platform.
--- NOTE | 2024-12-04 09:30 | PTOTSP ---
Speech Language Pathology
Pt seen for clinical bedside swallow evaluation. Increased WOB noted at rest. Seen with breakfast tray of regular solids/thin liquids. Slightly prolonged mastication noted, but this was functional given additional time. No oral residue noted.
No overt signs of aspiration. Wheeze noted at times with effort of P.O. intake. No prior hospitalizations at with no hx with CUSTOMER CONTACT SALES ASSOCIATE.
Recommend:
(1) Regular solids/thin liquids
(2) General aspiration precautions
(3) Meds as tolerated
(4) CUSTOMER CONTACT SALES ASSOCIATE to continue to follow
[2024-12-04] MEDS: SOLU-MEDROL PF 40 MG IV ×2 (09:57→20:10)
[2024-12-04] MEDS: CARDIZEM 10 MG IV ×3 (09:57→15:15)
[2024-12-04] MEDS: THERAGRAN 1 TABLET PO (09:58)
[2024-12-04] MEDS: NAMENDA 10 MG PO ×2 (09:58→20:10)
[2024-12-04] MEDS: SINEMET 25-100 2 TABLET PO ×3 (09:58→20:10)
[2024-12-04] MEDS: COLACE 200 MG PO (09:58)
[2024-12-04] MEDS: SENOKOT 17.2 MG PO (09:58)
--- NOTE | 2024-12-04 10:23 | W.PN.PUL3 ---
Today's Communication / Plan
-
-Speech therapy evaluation
-Continue current antibiotics, steroids and bronchodilators
Assessment
-
Patient is a84 y/o gentleman who was brought to the hospital for weakness and falls. He was noted to have Pneumonia and pyuria. He was started on Rocephin. Overnight, he became more short of breath with wheezing. CT was performed which was
suggestive of multifocal pneumonia. Due to increased wheezing and increased work of breathing, pulmonary consult was requested for further input. Patient unable to provide any history, information obtained from at bedside.
12/03, patient later developed episode of emesis with increased respiratory distress, requiring BIPAP and transfer to IMU.
#1. Multifocal Pneumonia, Concern for aspiration pneumonia. Influenza screen negative. Blood culture for 48 hours negative. COVID-19 screen negative. In view of respiratory distress, need for BIPAP, coverage was broadened to Vancomycin/Zosyn on
12/03
-Continue current antibiotics
-Sputum culture, if able to produce
-Speech/swallow evaluation, as aspiration risk
-If stays stable over next 24 hrs, can scale down to Unasyn
#2. Acute bronchospasm, likely related to #1, improving. Work of breathing somewhat improved.
-Solumedrol 80 mg IV stat followed by 40 mg q 12 hrs
-Duoneb qid and Albuterol PRN
-No known h/o COPD/Asthma but has long standing smoking history, might have underlying COPD
-If does not improve in coming hours, low threshold to initiate BIPAP
Other medical diagnoses:
-Parkinsonism
-Dementia
Total time spent on this consultation/encounter _40__ minutes which includes review of history, physical exam, medications, laboratory data, personal review of imaging, extensive review of outpatient records, discussion with care team and
respiratory therapy.
Data:
CT Chest 12/2024: 1. SEVERE PNEUMONIA in the LEFT UPPER LOBE and LEFT LOWER LOBE.
2. Mild pneumonia in the right upper lobe.
3. Mild cardiomegaly.
4. Moderate calcific atherosclerotic plaque in the coronary arteries.
5. Severe calcific atherosclerotic plaque in the thoracic aorta.
6. 2.4 cm low-attenuation lesion in the liver containing peripheral calcification. Diagnostic possibilities are (1) a primary or metastatic hepatic tumor, (2) a hepatic abscess, or (3) a complex cyst or chronic intrahepatic hematoma.
Subjective Data
-
Date of Service:
Date of Service: December 04, 2024
Subjective:
patient off BIPAP, comfortably sitting in bed,
Review of Systems
General: Other (Dementia is limiting factor )
Genitourinary: Other
Objective Data
Data Reviewed
Vital Signs / I&O / Oxygen:
Vital Signs
Temp Pulse Resp BP Pulse Ox
99.1 F 91 18 129/100 96
12/04/24 07:05 12/04/24 10:18 12/04/24 10:18 12/04/24 08:30 12/04/24 10:18
Intake and Output
12/03/24 12/04/24 12/05/24
06:59 06:59 06:59
Intake Total 540 / 540 730 / 730
Output Total 100 / 100 550 / 550
Balance 440 / 440 180 / 180
SaO2 96
Nasal Cannula flow liters per 5
minute
Physical Exam
General: Comfortable
HEENT: Normocephalic
Cardiovascular: Regular Rhythm
Respiratory: Wheeze (Improving bilateral wheezing ) and Rhonchi
GI: Soft and Non Distended
Neurology: Awake and Alert
Skin: Warm
Labs/Micro/Reports
Lab Data
12/04/24 03:50
12/04/24 03:50
Microbiology
12/01/24 07:28 Blood/Venous Blood Culture - Preliminary
No Growth in 72 hours- Final report to follow
12/01/24 07:06 Blood/Venous Blood Culture - Preliminary
No Growth in 72 hours- Final report to follow
12/03/24 03:17 Nasal Swab Influenza Types A & B (YOANDY) - Final
Negative for Influenza A & B, NAAT
Negative results must be combined with clinical observations
and patient history.
Nucleic Acid Amplification test (NAAT)performed on the
[email or web address] platform.
11/30/24 14:07 Urine Urine Culture - Final
--- NOTE | 2024-12-04 12:25 | CON.ID ---
Consultation
-
Date/Time Consultation Requested: 12/04/2024 0801
Date/Time Consultation Performed: 12/04/2024 1200
Requesting Provider: Dr. Sanchez
Performing Provider: Dr. Gaviria
Reason for Consultation: Pneumonia
Chief Complaint / Past History
History of Present Illness
Shante Doss is an 84-year-old man with a significant past medical history of dementia and Parkinson's disease being evaluated at the request of Dr. Sanchez in regards to fever and pneumonia. History is obtained from chart review, along with
patient interview. Additional history was obtained from the patient's who is at the bedside.
The patient reportedly had been feeling weak over 5 days prior to admission and at 1 point fell backward onto his buttocks, without striking his head. Since that time he has had some intermittent neck and back pain. He presented to the emergency
room on 11/30 when he grew 2-week to even get out of the chair. In the emergency room he was not immediately febrile, and did not have a leukocytosis, but later developed fever to 102 degrees. Yesterday he had an episode of vomiting, and overnight
he has been tachycardic. Since presentation he has had ongoing fevers to 102.9 degrees. He currently has significant wheezing. He admits to cough but reports that he is not producing any sputum at present.
Past History
Additional Past Medical History:
Dementia
Parkinson's disease
Gait dysfunction
Additional Past Surgical History:
Bilateral hip replacement
Renal cyst surgery
Bilateral carpal tunnel release
C-spine fusion
Ulnar nerve surgery
Bilateral shoulder surgery
Allergy History:
No Known Allergies Allergy (Verified 11/30/24 12:28)
Medications Reviewed: Yes
Current Antibiotics:
Vancomycin
Zosyn
Social History
Tobacco: Former Smoker
Alcohol: Occasional
Drug: None
Personal:
Living: With Family
Employment: Retired
Family History
Family History: Not Pertinent
Review of Systems
Vital Signs
Temp Pulse Resp BP Pulse Ox
99.1 F 97 18 129/100 96
12/04/24 07:05 12/04/24 11:39 12/04/24 10:18 12/04/24 08:30 12/04/24 10:18
Physical Exam
Physical Exam
Constitutional: Comfortable, Acutely Ill, Non-toxic and Obese (Mild)
Head: Normocephalic
Eyes: Pupils Equal, Pupils Round, No Conjunctival Hemorrhage and Sclera Anicteric
Oral: No Thrush and No Ulcers
Cardiovascular: Regular Rate and S1/S2; Negative S3/S4
Pulmonary: Wheezes (Marked; bilateral and audible without stethoscope), Rhonchi (Scattered throughout) and Other (Mildly labored)
Gastrointestinal: Soft, Non Tender, Non Distended, Normal Bowel Sounds, No Rebound and No Guarding
Extremities: Edema; Negative Cyanosis or Erythema
Skin: Warm and Dry; Negative Rash or Jaundice
Neurological: Awake and Alert
Psychological: Calm
Lab / Diagnostic Study Results
12/04/24 03:50
12/04/24 03:50
Abs Immat Gran (auto) 0.0 10^3/uL (0-0.05) 11/30/24 14:06
Absolute Neuts (auto) 4.2 10^3/uL (1.4-6.5) 11/30/24 14:06
Absolute Lymphs (auto) 0.8 10^3/uL (1.2-3.4) L 11/30/24 14:06
Absolute Monos (auto) 0.7 10^3/uL (0.1-0.6) H 11/30/24 14:06
Absolute Basos (auto) 0.0 10^3/uL (0-0.2) 11/30/24 14:06
Immature Gran % 0.5 % (0-0.5) 11/30/24 14:06
Neutrophils % 73.3 % (42.2-75.2) 11/30/24 14:06
Lymphocytes % 13.5 % (20.5-51.1) L 11/30/24 14:06
Monocytes % 11.3 % (1.7-9.3) H 11/30/24 14:06
Eosinophils % 0.9 % (0-6) 11/30/24 14:06
Basophils % 0.5 % (0-2) 11/30/24 14:06
Ur Squamous Epith Cells 16-20 /LPF (Few) 11/30/24 14:07
Microbiology Results
Micro:
12/01/24 07:28 Blood Culture - Preliminary
Blood/Venous No Growth in 72 hours- Final report to follow
12/01/24 07:06 Blood Culture - Preliminary
Blood/Venous No Growth in 72 hours- Final report to follow
12/03/24 03:17 Influenza Types A & B (YOANDY) - Final
Nasal Swab Negative for Influenza A & B, NAAT
Negative results must be combined with clinical observations
and patient history.
Nucleic Acid Amplification test (NAAT)performed on the
[employer] platform.
11/30/24 14:07 Urine Culture - Final
Urine
11/30/24 14:07 Influenza Types A & B (YOANDY) - Final
Nasal Swab Negative for Influenza A & B, NAAT
Negative results must be combined with clinical observations
and patient history.
Nucleic Acid Amplification test (NAAT)performed on the
[employer] platform.
Imaging:
12/03/2024 CXR (portable): Increased patchy opacities throughout the left lung. The known right upper lobe pneumonia is not well-visualized on this examination. No pleural effusion noted.
12/03/2024 CT chest without contrast: There is severe pneumonia noted in the left upper lobe and left lower lobe. Mild pneumonia in the right upper lobe. Mild cardiomegaly noted. Moderate calcific atherosclerosis in the coronary arteries. Please
see full dictation for additional detail. Film personally viewed.
Assessment / Plan
Pneumonia (bilateral; ?CAP ?aspiration)
Fever
Dementia
Parkinson's disease
Gait dysfunction
Recommendations:
Continue with empiric Zosyn and vancomycin.
Check pneumococcal urinary antigen
Check viral respiratory panel.
Check MRSA PCR.
Continue with respiratory treatments.
Monitor white count and temperature curve.
Continue with supportive measures.
Further recommendations as additional data is returned.
Care Review
Plan reviewed with: Physician (Hospitalist)
[2024-12-04 12:40] LABS: Glucose - Point of Care 128 mg/dl (70-99)
[2024-12-04] MEDS: CARDIZEM 30 MG PO (13:10)
[2024-12-04] MEDS: LASIX 40 MG IV (13:10)
[2024-12-04] MEDS: CITROMA 300 ML PO (13:10)
--- NOTE | 2024-12-04 13:42 | W.PN.HOSP.TC ---
Today's Communication/Plan
-
Continue antibiotic
Assessment / Plan
Assessment / Plan
Impression.
Patient is a pleasant 84 years old with history of dementia, parkinsonism who came to the ER with ambulatory dysfunction, chest x-ray shows no acute finding, urinalysis shows UTI admitted for sepsis and started Rocephin.
During hospitalization developed shortness of breath, coughing, wheezing and chest x-ray shows newly developed pneumonia, started on Rocephin and Zithromax.
Patient has increased work of breathing, seen by pulmonology, developed respiratory distress require upgrade to IMU and start BiPAP.
Antibiotic switched to vancomycin and Zosyn.
Also patient was tachycardic, started on Cardizem, received 1 dose of Lasix.
Assessment/plan
Sepsis secondary to pneumonia /UTI
Patient meets sepsis criteria on admission
Heart rate 90
Temperature max 102
Source of infection is UTI/community-acquired pneumonia
Initial chest x-ray shows no pneumonia
Initially started on IV antibiotic in form of Rocephin
Blood culture negative to date
Urine culture negative to date
12/03
Developed coughing and shortness of breath overnight.
Still with fever.
X-ray shows new opacity projecting over the mid/lower left lung which likely represents pneumonia.
CT chest shows:
1. SEVERE PNEUMONIA in the LEFT UPPER LOBE and LEFT LOWER LOBE.
2. Mild pneumonia in the right upper lobe.
3. Mild cardiomegaly.
4. Moderate calcific atherosclerotic plaque in the coronary arteries.
5. Severe calcific atherosclerotic plaque in the thoracic aorta.
6. 2.4 cm low-attenuation lesion in the liver containing peripheral calcification. Diagnostic possibilities are (1) a primary or metastatic hepatic tumor, (2) a hepatic abscess, or (3) a complex cyst or chronic intrahepatic hematoma.
Azithromycin added to Rocephin
12/04
Patient still running fever.
Seen by infectious disease and pulmonology.
Antibiotics switched to vancomycin and Zosyn
Acute hypoxic respiratory failure.
Secondary to pneumonia.
Appreciate pulmonology input.
Continue BiPAP.
Sinus tachycardia.
Secondary to underlying sepsis and respiratory distress.
Respond to Cardizem, start low-dose oral Cardizem
Status post fall - acute on chronic ambulatory dysfunction
Denies hitting head.
Fall precautions.
PT/OT consulted in the ER who recommended SNF.
Social service for discharge planning.
HX dementia
Continue Aricept-Namenda
HX Parkinson disease
Continue Sinemet
CODE STATUS: Full code
DVT prophylaxis: Lovenox
Diet: Regular diet
Family communication: Discussed with at bedside.
Total time spent on today's encounter was 75 minutes which included time spent in counseling the patient/family regarding diagnosis and treatment plan as listed above, goals of care, and symptom management. Case was discussed with nursing staff,
specialists, and care coordinators/case management. All labs and imaging personally reviewed by me. Remainder the time spent in detailed review of previous records, lab data, imaging, and other medical provider documentation.
Anticipated Discharge: > 48 hours
Subjective/Interval History
-
Date of Service: December 04, 2024
Patient seen and examined at bedside, increased work of breathing last evening required upgrade to IMU.
Patient seen in the morning while on BiPAP, the later on seen and examined again on nasal cannula.
Met with later in the day and review plan of care.
Last fever was 3 AM, no further fever, antibiotic switched to vancomycin and Zosyn.
Seen by infectious disease.
Objective Data
-
Labs:
Laboratory Results
12/04/24
03:50
WBC 6.6
Hgb 13.2
Hct 39.9
Plt Count 150
Sodium 141
Potassium 4.3
Chloride 109 H
Carbon Dioxide 22
BUN 27 H
Creatinine 1.1
Glucose 104 H
Calcium 8.4
Vital Signs:
Vital Signs
Temp Pulse Resp BP Pulse Ox
99.1 F 97 18 129/100 96
12/04/24 07:05 12/04/24 11:39 12/04/24 10:18 12/04/24 08:30 12/04/24 10:18
I&O
12/03/24 12/04/24 12/05/24
06:59 06:59 06:59
Intake Total 540 / 540 730 / 730
Output Total 100 / 100 550 / 550
Balance 440 / 440 180 / 180
Physical Exam
-
General: Respiratory Distress
HEENT: Normocephalic, Atraumatic, Moist Mucous Membranes, No Ptosis, PERRLA and Nose Appears Normal
Respiratory: Wheezes, Rales, Rhonchi, Crackles and Non Labored Respirations
Cardiac: Regular Rhythm, S1/S2 and Tachycardic
Breast: Deferred by me
GI: Soft, Nontender, Nondistended and Normal Bowel Sounds
Genito-urinary: No Costovertebral Tender
Musculoskeletal: No Clubbing, No Cyanosis and No Edema
Skin: Warm
Neuro: Awake, Alert, No Motor Deficits and Other
Psych: Calm
Data Reviewed
-
Diagnostic Radiology: Image personally visualized and interpreted and Report Reviewed by me
CT Scan: Image personally visualized and interpreted and Report Reviewed by me
Ultrasound: Image personally visualized and interpreted and Report Reviewed by me
MRI: Image personally visualized and interpreted and Report Reviewed by me
Medical Tests (Nuc Med, Echo etc): Image personally visualized and interpreted and Report Reviewed by me
Labs: Labs Reviewed by me
Old Records: Reviewed
--- NOTE | 2024-12-04 13:53 | PN.CDI ---
CDI
- -
CDI:
Physician Documentation Request
Admit Date: 12/02/24 08:10
Dear Doctor Laura,
Please review the following and provide your response in the progress notes.
Clinical Indicators:
Pt admitted with sepsis, UTI and pneumonia.
12/03 update progress note:'Patient vomited and became tachypneic.-Patient seen and examined at bedside, increased work of breathing.-Patient placed on BiPAP and plan to transfer to IMU.
Clarify which of the following accurately represents the patient's respiratory status:
Acute respiratory failure ( please indicate hypoxic or hypercapnic)
Hypoxia only
Other
Additional information for Respiratory Failure:
Recognized criteria for Respiratory Failure (Source: [facility] Hospitalist Jul 2013)
ABGs: (1 or more) Symptoms Please indicate type if known
1. p)2 <60 or RA SPO2 <91% on RA 1. Tachypnea, SOB, dyspnea Hypoxic
2. pCO2 50 and pH <7.35 2. Use of accessory muscles Hypercapnic
3. pO2 decrease of pCO2 increase by 3. Pallor or cyanosis Hypoxic and Hypercapnic
10 mmHg from baseline if known 4. Anxiety or restlessness
5. Unable to speak in full sentences
Supplemental O2 of > 40% (5LPM) Intubation is not required
Use of terms such as suspected, likely, concern for, or probable (associated with a specific diagnosis that is being evaluated, monitored, or treated as if it exists) are acceptable and can be coded in the inpatient setting, when documented at the
time of discharge.
Thank you,
iTffanie Santiago RN, BSN
CDI Specialist
[place] [facility]
Please use your independent medical judgment in providing your response.
--- NOTE | 2024-12-04 15:14 | CM ---
manager beauty reviewed patient's chart and reviewed physical therapy recommendations, and met with patient and recommendation is for skilled placement referrals sent to [facility] and [facility].
Plan': Skilled placement.
--- NOTE | 2024-12-04 15:37 | PTCARENOTE ---
Pt continues with high HR. EKG obtained showing SVT. Pt asymptomatic. Dr. Sanchez at bedside; orders placed by provider.
[2024-12-04 16:21] LABS: NT-proBNP 15600 pg/ml
--- NOTE | 2024-12-04 16:51 | CON.CAR ---
Addendum entered and electronically signed by Lev Munson MD 12/04/24 17:47:
I saw and examined the patient.
The FORENSIC SCIENCE TECHNICIAN's note was reviewed and I agree with the note.
Comment: 80yo with PD and OBS here for falls and ambulatory dysfunction but now with UTI/Severe PNA. He is now having bouts of SVT that are sustained mostly in the 150s. He has no complaint but is in mod distress. Diffusely wheezing. He has rapid
rate and regular, no le edema. Tele while in room svt in the 150s not responding to strong cough or valsalva. SVT: nurse said dilt dose helps transiently then recurrs. Will start with dilt bolus and gtt may need to reconsider and start Amiodarone.
will check echo when rate controlled. HTN should be helped with ccb too. Avoid bb due to bronchospasm. Hypoxic resp failure due to pna, will monitor for CHF given tachyarrhythma. UTI/PNA per medicine. PD/OBS per medicine.
Original Note:
Consultation
Consultation Request
Date/Time Consultation Requested: 12/04/24 1438
Date/Time Consultation Performed: 12/04/24 1652
Requesting Provider: Dr. Sanchez
Performing Provider: Kaylyn CHARLTON for Dr. Munson
Reason for Consultation: SVT
Medical History
-
Chief Complaint: falls, ambulatory dysfunction
History of Present Illness:
84 y/o male with dementia and Parkinson's disease who came in with falls/ambulatory dysfunction. He was originally treated for UTI, but then developed cough and SOB and is seen to have sepsis with severe PNA. He is on 5L O2 by [place]. We are consulted
for SVT in this setting.
Past Medical History
Past Medical History: Other (dementia, Parkinson's)
Social History
Personal:
Family History
Family History: Reviewed & Not Pertinent
Allergies / Home Medications
Allergy/AdvReac Type Severity Reaction Status Date / Time
No Known Allergies Allergy Verified 11/30/24 12:28
�Medication �Instructions �Recorded �Confirmed �Type
carbidopa 25 mg-levodopa 100 mg 2 tab PO TID Multiple Sclerosis 11/30/24 11/30/24 History
tablet
docusate sodium 100 mg capsule 100 mg PO HS Gastrointestinal Issue 11/30/24 11/30/24 History
(Colace)
docusate sodium 100 mg capsule 200 mg PO DAILY Gastrointestinal 11/30/24 11/30/24 History
(Colace) Issue
donepezil 10 mg tablet 10 mg PO HS Neurological Condition 11/30/24 11/30/24 History
latanoprost 0.005 % eye drops 1 drp BOTH EYES QPM Eye Condition 11/30/24 11/30/24 History
memantine 10 mg tablet 10 mg PO BID Neurological Condition 11/30/24 11/30/24 History
sennosides 8.6 mg tablet (senna) 17.2 mg PO HS Gastrointestinal 11/30/24 11/30/24 History
Issue
sertraline 50 mg tablet 50 mg PO HS Multiple Sclerosis 11/30/24 11/30/24 History
therapeutic multivitamin 1 tab PO DAILY Supplement 11/30/24 11/30/24 History
Review of Systems
-
History Source: Patient and Other (chart)
Musculoskeletal: Other (falls, ambulatory dysfunction)
Physical Exam
Vital Signs
Temp Pulse Resp BP Pulse Ox
99.1 F 156 25 157/86 95
12/04/24 07:05 12/04/24 16:30 12/04/24 16:30 12/04/24 16:23 12/04/24 16:30
Lab Results
12/04/24 03:50
12/04/24 03:50
Wik-L-Olsxdtnvyhe Pept 97921 pg/ml 12/04/24 03:50
Physical Exam
General: Well Developed, Well Nourished and Other (increase WOB)
HEENT: Normocephalic and Anicteric
Respiratory: Wheezes, Rhonchi and Other (on O2 by NC- increased WOB)
Cardiac: Regular Rhythm
Musculoskeletal: No Edema
Skin: Warm and Dry
Neuro: Awake, Alert and Oriented (to self)
Psych: Calm
Impression / Plan
-
Sepsis with UTI and PNA:
-PNA is severe on CT scan. He is requiring O2 by NC.
-on ABX
-pulmonary, ID on the case
PSVT:
-HR 150's, BP stable
-start IV diltiazem, which requires intensive monitoring
-echo when HR better, thyroid testing added
Dementia:
-on medical therapy
Parkinson's Disease:
-on medical therapy
Data Reviewed
-
EKG: Tracing Personally Visualized and interpreted (SVT 151 BPM)
Radiology: Report Reviewed by me (CXR: When compared with recent prior chest radiograph there is increased patchy opacities throughout the left lung likely representing worsening pneumonia.)
Medical Tests (Nuc Med, Echo etc): Other (echo ordered)
Labs: Labs Reviewed by me
[2024-12-04] MEDS: CARDIZEM 20 MG IV (16:55)
[2024-12-04] MEDS: CARDIZEM 125 IV (16:58)
--- NOTE | 2024-12-04 17:05 | PTCARENOTE ---
Pt seen by cardiology, order received for Cardizem bolus and gtt- administered as ordered. HR in the 80-90's at this time.
[2024-12-04 17:44] LABS: Glucose - Point of Care 148 mg/dl (70-99)
[2024-12-04] MEDS: LOVENOX 40 MG SC (18:33)
[2024-12-04] MEDS: XALATAN OPHTHALMIC SOLUTION 1 DROP BOTH EYES (18:35)
[2024-12-04] MEDS: ZOLOFT 50 MG PO (20:10)
[2024-12-04] MEDS: COLACE 100 MG PO (20:10)
--- NOTE | 2024-12-04 20:31 | PTCARENOTE ---
Pt c/o moderate B/L lower quadrant abdominal pain. No documented bm this admission. Per , it has been about 4 days since his last bm. Abdomen round, mildly distended. Hyperactive bowel sounds in all quadrants. PM colace dose given. Pt with temp
100.8. Pt asymptomatic. IV offirmev given for temp and moderate abdominal pain. Pt remains on iv abx and iv steroids. Lung sounds are course with audible wheezing and crackles. SaO2 93% on 5LNC. Bipap HS as tolerated. Call martin and belongings within
reach. Care ongoing.
[2024-12-04 22:23] LABS: Glucose - Point of Care 137 mg/dl (70-99)
[2024-12-05] VITALS (26 sets, daily range): BP systolic 113–143; BP diastolic 54–95; PULSE 2–106; O2SAT 98
[2024-12-05] MEDS: ZOSYN 50 IV ×3 (00:44→12:46)
--- NOTE | 2024-12-05 03:18 | PTCARENOTE ---
pt HR 59, BP 134/72. Per PARKING [employer]ATION ENFORCEMENT OFFICER, ok to come off cardizem gtt since HR below 60. Cardizem gtt off at this time.
[2024-12-05 04:55] LABS: Hematocrit 37.7 % (39.0-52.0); Hemoglobin 12.6 g/dL (13.0-18.0); Mean Corp Hgb Conc. 33.4 g/dL (33.0-37.0); Mean Corpuscular Hgb 28.3 pg (27.0-31.0); Mean Corpuscular Volume 84.7 fL (80.0-94.0); Mean Platelet Volume 10.3 fL (7.4-10.4); Platelet Count 134 10^3/uL (130-400); Red Blood Cell Count 4.45 10^6/uL (4.70-6.10); Red Cell Dist. Width 13.7 % (11.5-14.5)
[2024-12-05] MEDS: VANCOCIN 275 MG IV (05:06)
[2024-12-05 05:09] LABS: Blood Urea Nitrogen 28 mg/dl (9-20); Calcium 8.3 mg/dl (8.4-10.2); Carbon Dioxide 28 mmol/L (22-30); Chloride 105 mmol/L (98-107); Estimated Creatinine Clearance 46 ml/min; Glucose 146 mg/dl (70-99); Potassium 3.8 mmol/L (3.5-5.1); Sodium 141 mmol/L (135-145); eGFR 59.63
[2024-12-05 05:28] LABS: NT-proBNP 8270 pg/ml; Troponin I 0.136 ng/ml
[2024-12-05 05:40] LABS: TSH Reflex To Free T4 0.58 uIU/ml (0.47-4.68)
[2024-12-05] MEDS: DUONEB 3 ML INH ×3 (07:24→19:19)
--- NOTE | 2024-12-05 08:41 | W.PN.CD ---
Today's Communication / Plan
-
echo today
start diltiazem 120mg bid
Impression / Plan
-
Sepsis with UTI and PNA:
-PNA is severe on CT scan. He is requiring O2 by CA.
-on ABX
-pulmonary, ID are consulted
paroxysmal SVT: still having episodes
-echo today
-off diltiazem drip
-start diltiazem 120mg bid
Dementia:
-on medical therapy
Parkinson's Disease:
-on medical therapy
Physical Exam
Vital Signs/Labs
Vital Signs
Temp Pulse Resp BP Pulse Ox
97.6 F 65 15 133/84 99
12/05/24 07:40 12/05/24 06:00 12/05/24 06:00 12/05/24 06:00 12/05/24 06:00
12/04/24 12/05/24 12/06/24
06:59 06:59 06:59
Actual Weight 83 kg
12/05/24 04:19
12/05/24 04:19
Magnesium 2.1 mg/dl (1.6-2.3) 11/30/24 14:05
12/04/24 12/05/24
03:50 04:19
Xia-T-Ybltbqhjbhx Pept [id number]
LAB Results
12/05/24
04:19
Troponin I 0.136 H*
Physical Exam
Constitutional: No acute distress and Comfortable
EENT: Moist mucous membranes
Cardiovascular: Rhythm & rate is regular, Pedal edema is absent, JVD pressure is normal and Systolic murmur absent
Respiratory: Labored respirations
Neuro/Psych: Alert
Data Reviewed
-
Date of Service: December 05, 2024
EKG: Other (Tele: sinus with paroxysmal SVT)
Labs: Labs Reviewed by me
[2024-12-05] MEDS: COLACE 200 MG PO (09:26)
[2024-12-05] MEDS: SENOKOT 17.2 MG PO (09:27)
[2024-12-05] MEDS: NAMENDA 10 MG PO ×2 (09:27→19:52)
[2024-12-05] MEDS: SINEMET 25-100 2 TABLET PO ×3 (09:31→23:04)
[2024-12-05] MEDS: SOLU-MEDROL PF 40 MG IV (09:32)
[2024-12-05] MEDS: THERAGRAN 1 TABLET PO (09:32)
[2024-12-05] MEDS: CARDIZEM CD 120 MG PO ×2 (09:33→19:52)
[2024-12-05] MEDS: DULCOLAX 10 MG RECTAL (09:33)
--- NOTE | 2024-12-05 09:34 | PHA.VAN.FU ---
Vancomycin Assessment / Plan
- Assessment
Renal Function: Stable (~1.1)
WBC's are: WNL
In the past 24 hrs, patient has been: Febrile (100.8)
Concomitant Antimicrobials: Piperacillin/Tazobactam
- Dosing Plan
Continue: Vanco 1250mg Q24H
- Monitoring Plan
No level(s) ordered at this time: Consider in the next few days
- Follow Up
Pharmacy will continue to follow.
Vancomycin Follow UP
- -
Patient Age: 84
Patient Sex: Male
Vancomycin Day #: 3
Indication: Pulmonary/Respiratory
Requesting Provider: YOUNG
Pertinent Antimicrobial Allergies:
No known drug allergies
Height / Weight:
Height 5 ft 9 in
Actual Weight 83 kg
- Vital Signs / Lab Results
Temp Pulse Resp BP Pulse Ox
97.6 F 75 15 132/54 99
12/05/24 07:40 12/05/24 09:33 12/05/24 06:00 12/05/24 09:33 12/05/24 06:00
Lab Results - Hematology
12/03/24 12/04/24 12/05/24
07:50 03:50 04:19
WBC 4.1 L 6.6 4.0 L
Lab Results - Chemistry
12/03/24 12/04/24 12/05/24
07:50 03:50 04:19
BUN 21 H 27 H 28 H
Creatinine 1.1 1.1 1.2
Estimated Creat Clear 50 50 46
Microbiology Results
12/01/24 07:28 Blood Culture - Preliminary
Blood/Venous No Growth in 4 days- Final report to follow
12/01/24 07:06 Blood Culture - Preliminary
Blood/Venous No Growth in 4 days- Final report to follow
[2024-12-05] MEDS: DUONEB INH (11:29)
--- NOTE | 2024-12-05 13:24 | PTCARENOTE ---
Pt's assessment as documented. Aox1, forgetful. HR much improved; NSR with 1st degree heart block. Satting mid to high 90's on 3L NC. Incontinent of urine, tucker care completed. and daughter at bedside, updated on plan of care. Q2T and bed alarm
maintained. Call martin within reach.
--- NOTE | 2024-12-05 13:54 | W.PN.ID1 ---
Date of Service
Date of Service: December 05, 2024
Today's Communication
Discontinue further antibiotics.
Assessment / Plan
Bilateral pneumonia
- Human metapneumovirus found by PCR testing
Fever
- Appears to be improving
Dementia
Parkinson's disease
Gait dysfunction
Recommendations:
Discontinue further antibacterials
Continue with respiratory treatments.
Monitor white count and temperature curve.
Continue with supportive measures.
����������������������������������������������������������
Chief Complaint
-: Pneumonia
Subjective / Review of Systems
Patient seen and examined. Fevers trending down.
Vital Signs / Physical Exam
Vital Signs
Vital Signs
Temp Pulse Resp BP Pulse Ox
97.0 F 75 16 143/89 99
12/05/24 11:50 12/05/24 12:00 12/05/24 12:00 12/05/24 12:00 12/05/24 12:00
Physical Exam
Constitutional: Comfortable, Chronically Ill and Non-toxic
Cardiovascular: S1/S2; Negative S3/S4
Pulmonary: Wheezes, Coarse and Non Labored
Gastrointestinal: Soft and Non Tender
Neurological: Other (Resting comfortably)
Psychological: Calm
Objective Data
Lab Data
Lab Results
12/05/24 04:19
12/05/24 04:19
Estimated Creat Clear 46 ml/min 12/05/24 04:19
Total Bilirubin 1.0 mg/dl (0.2-1.3) 11/30/24 14:05
AST 44 U/L (17-59) 11/30/24 14:05
ALT 46 U/L (0-50) 11/30/24 14:05
Alkaline Phosphatase 77 U/L (38-126) 11/30/24 14:05
Most recent labs reviewed.
Micro Results:
04/03/25 07:45 Influenza Type A (PCR) - Final
Nasalpharynx Not Detected
Influenza Type A (H1) (PCR) - Final
Not Detected
Influenza Type A (H3) (PCR) - Final
Not Detected
Influenza Type B (PCR) - Final
Not Detected
Resp Syncytial Virus Type A (PCR) - Final
Not Detected
Resp Syncytial Virus Type B (PCR) - Final
Not Detected
Adenovirus DNA (PCR) - Final
Not Detected
Human Metapneumovirus (PCR) - Final
DETECTED
Parainfluenza Virus Type 1 (PCR) - Final
Not Detected
Parainfluenza Virus Type 2 (PCR) - Final
Not Detected
Parainfluenza Virus Type 3 (PCR) - Final
Not Detected
Parainfluenza Virus Type 4 - Final
Not Detected
Rhinovirus (PCR) - Final
Not Detected
12/01/24 07:28 Blood Culture - Preliminary
Blood/Venous No Growth in 4 days- Final report to follow
12/01/24 07:06 Blood Culture - Preliminary
Blood/Venous No Growth in 4 days- Final report to follow
12/05/24 01:11 MRSA Screen - Pending
Nose
12/03/24 03:17 Influenza Types A & B (YOANDY) - Final
Nasal Swab Negative for Influenza A & B, NAAT
Negative results must be combined with clinical observations
and patient history.
Nucleic Acid Amplification test (NAAT)performed on the
[employer] platform.
11/30/24 14:07 Urine Culture - Final
Urine
11/30/24 14:07 Influenza Types A & B (YOANDY) - Final
Nasal Swab Negative for Influenza A & B, NAAT
Negative results must be combined with clinical observations
and patient history.
Nucleic Acid Amplification test (NAAT)performed on the
[employer] platform.
Imaging:
12/03/2024 CXR (portable): Increased patchy opacities throughout the left lung. The known right upper lobe pneumonia is not well-visualized on this examination. No pleural effusion noted.
12/03/2024 CT chest without contrast: There is severe pneumonia noted in the left upper lobe and left lower lobe. Mild pneumonia in the right upper lobe. Mild cardiomegaly noted. Moderate calcific atherosclerosis in the coronary arteries. Please
see full dictation for additional detail. Film personally viewed.
Care Review
Plan reviewed with: Physician (Pulmonary)
--- NOTE | 2024-12-05 13:59 | W.PN.HOSP.TC ---
Addendum entered and electronically signed by Yaima Sanchez MD 12/05/24 15:56:
Acute pulmonary edema due to heart failure
Addendum entered and electronically signed by Yaima Sanchez MD 12/05/24 15:34:
Non-ischemic myocardial injury
Original Note:
Today's Communication/Plan
-
Start oral Cardizem
Assessment / Plan
Assessment / Plan
Impression.
Patient is a pleasant 84 years old with history of dementia, parkinsonism who came to the ER with ambulatory dysfunction, chest x-ray shows no acute finding, urinalysis shows UTI admitted for sepsis and started Rocephin.
During hospitalization developed shortness of breath, coughing, wheezing and chest x-ray shows newly developed pneumonia, started on Rocephin and Zithromax.
Patient has increased work of breathing, seen by pulmonology, developed respiratory distress require upgrade to IMU and start BiPAP.
Antibiotic switched to vancomycin and Zosyn.
Also patient was tachycardic, started on Cardizem, received 1 dose of Lasix.
Assessment/plan
Sepsis secondary to pneumonia /UTI
Patient meets sepsis criteria on admission
Heart rate 90
Temperature max 102
Source of infection is UTI/community-acquired pneumonia
Initial chest x-ray shows no pneumonia
Initially started on IV antibiotic in form of Rocephin
Blood culture negative to date
Urine culture negative to date
12/03
Developed coughing and shortness of breath overnight.
Still with fever.
X-ray shows new opacity projecting over the mid/lower left lung which likely represents pneumonia.
CT chest shows:
1. SEVERE PNEUMONIA in the LEFT UPPER LOBE and LEFT LOWER LOBE.
2. Mild pneumonia in the right upper lobe.
3. Mild cardiomegaly.
4. Moderate calcific atherosclerotic plaque in the coronary arteries.
5. Severe calcific atherosclerotic plaque in the thoracic aorta.
6. 2.4 cm low-attenuation lesion in the liver containing peripheral calcification. Diagnostic possibilities are (1) a primary or metastatic hepatic tumor, (2) a hepatic abscess, or (3) a complex cyst or chronic intrahepatic hematoma.
Azithromycin added to Rocephin
12/04
Patient still running fever.
Seen by infectious disease and pulmonology.
Antibiotics switched to vancomycin and Zosyn
12/05
Fever improved
Respiratory viral panel negative
Acute hypoxic respiratory failure.
Secondary to pneumonia.
Appreciate pulmonology input.
Continue BiPAP.
Sinus tachycardia.
Secondary to underlying sepsis and respiratory distress.
Respond to Cardizem, start low-dose oral Cardizem
12/05
Tachycardia improved, Cardizem drip discontinued and started on oral Cardizem
Status post fall - acute on chronic ambulatory dysfunction
Denies hitting head.
Fall precautions.
PT/OT consulted in the ER who recommended SNF.
Social service for discharge planning.
HX dementia
Continue Aricept-Namenda
HX Parkinson disease
Continue Sinemet
CODE STATUS: Full code
DVT prophylaxis: Lovenox
Diet: Regular diet
Family communication: Discussed with at bedside.
Total time spent on today's encounter was 75 minutes which included time spent in counseling the patient/family regarding diagnosis and treatment plan as listed above, goals of care, and symptom management. Case was discussed with nursing staff,
specialists, and care coordinators/case management. All labs and imaging personally reviewed by me. Remainder the time spent in detailed review of previous records, lab data, imaging, and other medical provider documentation.
Anticipated Discharge: > 48 hours
Subjective/Interval History
-
Date of Service: December 05, 2024
Patient seen and examined at bedside, heart rate improved, patient currently off Cardizem drip.
Started on oral Cardizem per cardiology.
Patient still patient with audible rales and crackles on physical exam,
Objective Data
-
Labs:
Laboratory Results
12/05/24
04:19
WBC 4.0 L
Hgb 12.6 L
Hct 37.7 L
Plt Count 134
Sodium 141
Potassium 3.8
Chloride 105
Carbon Dioxide 28
BUN 28 H
Creatinine 1.2
Glucose 146 H
Calcium 8.3 L
Vital Signs:
Vital Signs
Temp Pulse Resp BP Pulse Ox
97.0 F 75 16 143/89 99
12/05/24 11:50 12/05/24 12:00 12/05/24 12:00 12/05/24 12:00 12/05/24 12:00
I&O
12/04/24 12/05/24 12/06/24
06:59 06:59 06:59
Intake Total 730 / 730 290 / 290
Output Total 550 / 550
Balance 180 / 180 290 / 290
Physical Exam
-
General: Respiratory Distress and Appears in Distress
HEENT: Normocephalic, Atraumatic, Moist Mucous Membranes, No Ptosis, PERRLA and Nose Appears Normal
Respiratory: Wheezes, Rales, Rhonchi, Crackles and Non Labored Respirations
Cardiac: Regular Rhythm, S1/S2 and Tachycardic
Breast: Deferred by me
GI: Soft, Nontender, Nondistended and Normal Bowel Sounds
Genito-urinary: No Costovertebral Tender
Musculoskeletal: No Clubbing, No Cyanosis and No Edema
Skin: Warm
Neuro: Awake, Alert, No Motor Deficits and Other
Psych: Calm
Data Reviewed
-
Diagnostic Radiology: Image personally visualized and interpreted and Report Reviewed by me
CT Scan: Image personally visualized and interpreted and Report Reviewed by me
Ultrasound: Image personally visualized and interpreted and Report Reviewed by me
MRI: Image personally visualized and interpreted and Report Reviewed by me
Medical Tests (Nuc Med, Echo etc): Image personally visualized and interpreted and Report Reviewed by me
Labs: Labs Reviewed by me
Old Records: Reviewed
--- NOTE | 2024-12-05 14:46 | W.PN.PUL3 ---
Today's Communication / Plan
-
-Agree with stopping antibiotics
-Lower Solumedrol to 40 mg daily
-Continue Duoneb and PRN Albuterol for now
Assessment
-
Patient is a84 y/o gentleman who was brought to the hospital for weakness and falls. He was noted to have Pneumonia and pyuria. He was started on Rocephin. Overnight, he became more short of breath with wheezing. CT was performed which was
suggestive of multifocal pneumonia. Due to increased wheezing and increased work of breathing, pulmonary consult was requested for further input. Patient unable to provide any history, information obtained from at bedside.
12/03, patient later developed episode of emesis with increased respiratory distress, requiring BIPAP and transfer to IMU.
#1. Multifocal Pneumonia, Concern for aspiration pneumonia. Influenza screen negative. Blood culture for 48 hours negative. COVID-19 screen negative. In view of respiratory distress, need for BIPAP, coverage was broadened to Vancomycin/Zosyn on
12/03.
-Metapneumovirus noted on extended viral panel: antibiotics stopped 12/05
-Speech/swallow evaluation, as aspiration risk
#2. Acute bronchospasm, likely related to #1, improving. Work of breathing continues to improve. Off BIPAP now
-Lower solumedrol to 40 mg daily
-Continue Duoneb qid and Albuterol PRN
-No known h/o COPD/Asthma but has long standing smoking history, might have underlying COPD
Other medical diagnoses:
-Parkinsonism
-Dementia
Total time spent on this consultation/encounter _32__ minutes which includes review of history, physical exam, medications, laboratory data, personal review of imaging, extensive review of outpatient records, discussion with care team and
respiratory therapy.
Data:
ECHO 12/2024: Normal biventricular size and systolic function without regional wall motion abnormality.
Moderate concentric left ventricular hypertrophy.
Grade II diastolic dysfunction suggestive of increased filling pressures.
Mild mitral regurgitation.
Mild aortic regurgitation.
Estimated PASP 40-45 mmHg with an estimated RA of 8 mmHg.
No prior study available for comparison.
CT Chest 12/2024: 1. SEVERE PNEUMONIA in the LEFT UPPER LOBE and LEFT LOWER LOBE.
2. Mild pneumonia in the right upper lobe.
3. Mild cardiomegaly.
4. Moderate calcific atherosclerotic plaque in the coronary arteries.
5. Severe calcific atherosclerotic plaque in the thoracic aorta.
6. 2.4 cm low-attenuation lesion in the liver containing peripheral calcification. Diagnostic possibilities are (1) a primary or metastatic hepatic tumor, (2) a hepatic abscess, or (3) a complex cyst or chronic intrahepatic hematoma.
Subjective Data
-
Date of Service:
Date of Service: December 05, 2024
Objective Data
Data Reviewed
Vital Signs / I&O / Oxygen:
Vital Signs
Temp Pulse Resp BP Pulse Ox
97.0 F 75 16 143/89 99
12/05/24 11:50 12/05/24 12:00 12/05/24 12:00 12/05/24 12:00 12/05/24 12:00
Intake and Output
12/04/24 12/05/24 12/06/24
06:59 06:59 06:59
Intake Total 730 / 730 290 / 290
Output Total 550 / 550
Balance 180 / 180 290 / 290
SaO2 99
Nasal Cannula flow liters per 5
minute
Physical Exam
General: Comfortable
HEENT: Normocephalic
Cardiovascular: Regular Rhythm
Respiratory: Wheeze (Improving bilateral wheezing ) and Rhonchi
GI: Soft and Non Distended
Neurology: Awake and Alert
Skin: Warm
Labs/Micro/Reports
Lab Data
12/05/24 04:19
12/05/24 04:19
Microbiology
12/05/24 07:45 Nasalpharynx Influenza Type A (PCR) - Final
Not Detected
12/05/24 07:45 Nasalpharynx Influenza Type A (H1) (PCR) - Final
Not Detected
12/05/24 07:45 Nasalpharynx Influenza Type A (H3) (PCR) - Final
Not Detected
12/05/24 07:45 Nasalpharynx Influenza Type B (PCR) - Final
Not Detected
12/05/24 07:45 Nasalpharynx Resp Syncytial Virus Type A (PCR) - Final
Not Detected
12/05/24 07:45 Nasalpharynx Resp Syncytial Virus Type B (PCR) - Final
Not Detected
12/05/24 07:45 Nasalpharynx Adenovirus DNA (PCR) - Final
Not Detected
12/05/24 07:45 Nasalpharynx Human Metapneumovirus (PCR) - Final
DETECTED
12/05/24 07:45 Nasalpharynx Parainfluenza Virus Type 1 (PCR) - Final
Not Detected
12/05/24 07:45 Nasalpharynx Parainfluenza Virus Type 2 (PCR) - Final
Not Detected
12/05/24 07:45 Nasalpharynx Parainfluenza Virus Type 3 (PCR) - Final
Not Detected
12/05/24 07:45 Nasalpharynx Parainfluenza Virus Type 4 - Final
Not Detected
12/05/24 07:45 Nasalpharynx Rhinovirus (PCR) - Final
Not Detected
12/01/24 07:28 Blood/Venous Blood Culture - Preliminary
No Growth in 4 days- Final report to follow
12/01/24 07:06 Blood/Venous Blood Culture - Preliminary
No Growth in 4 days- Final report to follow
12/03/24 03:17 Nasal Swab Influenza Types A & B (YOANDY) - Final
Negative for Influenza A & B, NAAT
Negative results must be combined with clinical observations
and patient history.
Nucleic Acid Amplification test (NAAT)performed on the
[employer] NOW platform.
--- NOTE | 2024-12-05 14:54 | PN.CDI ---
CDI
- -
CDI:
Physician Documentation Request
Admit Date: 12/02/24 08:10
Dear Doctor Laura,
Please review the following and provide your response in the progress notes.
Clinical Indicators:
Pt admitted with sepsis secondary to pneumonia and UTI.
Laboratory Tests
12/05/24
04:19
Troponin I 0.136 H*
Based on the above, could you clarify in the progress notes, the appropriate diagnosis, if significant, that supports the above Lab abnormalities and additional evaluation, monitoring and/or treatment rendered:
Non-ischemic myocardial injury
Insignificant abnormal lab results
Other
Use of terms such as suspected, likely, concern for, or probable (associated with a specific diagnosis that is being evaluated, monitored, or treated as if it exists) are acceptable and can be coded in the inpatient setting, when documented at the
time of discharge.
Thank you,
Tiffanie Santiago RN, BSN
CDI Specialist
[employer]
Please use your independent medical judgment in providing your response.
--- NOTE | 2024-12-05 15:12 | PN.CDI ---
CDI
- -
CDI:
Physician Documentation Request
Admit Date: 12/02/24 08:10
Dear Doctor Laura,
Please review the following and provide your response in the progress notes.
Clinical Indicators:
Pt admitted with sepsis secondary to pneumonia and UTI.
4 ECHO: 'Normal biventricular size and systolic function without regional wall motion
abnormality.
Moderate concentric left ventricular hypertrophy.
Grade II diastolic dysfunction suggestive of increased filling pressures.
Mild mitral regurgitation.
Mild aortic regurgitation.
Estimated PASP 40-45 mmHg with an estimated RA of 8 mmHg
Left Ventricle
Normal left ventricular size and systolic function. No regional wall motion
abnormalities are seen. LV ejection fraction is 50-55% by Hill's method of
discs.'
12/05 Progress Note: 'Patient has increased work of breathing, seen by pulmonology, developed respiratory distress require upgrade to IMU and start BiPAP.
received 1 dose of Lasix.....Patient still patient with audible rales and crackles on physical exam,'
4/ 40mg IV Lasix given
Laboratory Tests
12/04/24 12/05/24
03:50 04:19
[id number] Pept [id number]
Please clarify the associated with the above findings / IV Lasix use:
Acute pulmonary edema due to heart failure (please specify type and acuity)
Type: systolic, diastolic, combined or other type
Acuity: acute (new onset), chronic or acute on chronic
Acute non-cardiac pulmonary edema due to fluid overload
Acute non-cardiac pulmonary edema due to other cause (please specify)
Other
Use of terms such as suspected, likely, concern for, or probable (associated with a specific diagnosis that is being evaluated, monitored, or treated as if it exists) are acceptable and can be coded in the inpatient setting, when documented at the
time of discharge.
Thank you,
Tiffanie Santiago RN, BSN
CDI Specialist
[employer]
Please use your independent medical judgment in providing your response.
[2024-12-05] MEDS: LASIX 40 MG IV (15:14)
[2024-12-05] MEDS: LOVENOX 40 MG SC (17:53)
[2024-12-05] MEDS: XALATAN OPHTHALMIC SOLUTION 1 DROP BOTH EYES (18:00)
[2024-12-05] MEDS: ULTRAM 50 MG PO (19:52)
[2024-12-05 20:35] LABS: Troponin I 0.118 ng/ml
[2024-12-05] MEDS: ZOLOFT 50 MG PO (23:04)
[2024-12-05] MEDS: COLACE 100 MG PO (23:04)
[2024-12-06] VITALS (16 sets, daily range): BP systolic 110–156; BP diastolic 73–119; PULSE 81
--- NOTE | 2024-12-06 00:06 | PTCARENOTE ---
Pt continuously taking off bipap. Bipap off for now. Resp therapist notified. SaO2 95% on 2LNC.
[2024-12-06 05:02] LABS: Hematocrit 37.4 % (39.0-52.0); Hemoglobin 12.5 g/dL (13.0-18.0); Mean Corp Hgb Conc. 33.4 g/dL (33.0-37.0); Mean Corpuscular Hgb 28.2 pg (27.0-31.0); Mean Corpuscular Volume 84.4 fL (80.0-94.0); Mean Platelet Volume 10.5 fL (7.4-10.4); Platelet Count 174 10^3/uL (130-400); Red Blood Cell Count 4.43 10^6/uL (4.70-6.10); Red Cell Dist. Width 13.7 % (11.5-14.5); White Blood Cell Count 7.1 10^3/uL (4.8-10.8)
[2024-12-06 05:15] LABS: Blood Urea Nitrogen 33 mg/dl (9-20); Calcium 8.9 mg/dl (8.4-10.2); Carbon Dioxide 28 mmol/L (22-30); Chloride 104 mmol/L (98-107); Estimated Creatinine Clearance 46 ml/min; Glucose 113 mg/dl (70-99); Potassium 3.6 mmol/L (3.5-5.1); Sodium 142 mmol/L (135-145); eGFR 59.63
[2024-12-06] MEDS: DUONEB 3 ML INH ×2 (07:02→20:40)
[2024-12-06] MEDS: THERAGRAN 1 TABLET PO (08:08)
[2024-12-06] MEDS: SENOKOT 17.2 MG PO (08:08)
[2024-12-06] MEDS: COLACE 200 MG PO (08:08)
[2024-12-06] MEDS: CARDIZEM CD 120 MG PO (08:08)
[2024-12-06] MEDS: SOLU-MEDROL PF 40 MG IV (08:09)
[2024-12-06] MEDS: SINEMET 25-100 2 TABLET PO ×3 (08:09→20:22)
[2024-12-06] MEDS: NAMENDA 10 MG PO ×2 (08:09→19:34)
--- NOTE | 2024-12-06 08:53 | W.PN.ID1 ---
Date of Service
Date of Service: December 06, 2024
Today's Communication
Sign off.
Assessment / Plan
Bilateral pneumonia
- Human metapneumovirus found by PCR testing
Fever
- Appears to be improving
Dementia
Parkinson's disease
Gait dysfunction
Recommendations:
Continue off antibacterials
Continue with respiratory treatments.
Monitor white count and temperature curve.
Continue with supportive measures.
Little more to offer from a Infectious Disease standpoint.
Will see again at your request.
����������������������������������������������������������
Chief Complaint
-: Pneumonia
Subjective / Review of Systems
Patient seen and examined. Still has wheeze. No shortness of breath
Review of Systems: No Fever
Vital Signs / Physical Exam
Vital Signs
Vital Signs
Temp Pulse Resp BP Pulse Ox
97.3 F 83 15 137/73 96
12/06/24 03:00 12/06/24 08:08 12/06/24 07:04 12/06/24 08:08 12/06/24 07:04
Physical Exam
Constitutional: Comfortable and Non-toxic
Cardiovascular: S1/S2; Negative S3/S4
Pulmonary: Wheezes, Coarse and Non Labored
Gastrointestinal: Soft and Non Tender
Neurological: Other (Resting comfortably)
Psychological: Calm
Objective Data
Lab Data
Lab Results
12/06/24 04:33
12/06/24 04:33
Estimated Creat Clear 46 ml/min 12/06/24 04:33
Total Bilirubin 1.0 mg/dl (0.2-1.3) 11/30/24 14:05
AST 44 U/L (17-59) 11/30/24 14:05
ALT 46 U/L (0-50) 11/30/24 14:05
Alkaline Phosphatase 77 U/L (38-126) 11/30/24 14:05
Most recent labs reviewed.
Micro Results:
12/05/24 01:11 MRSA Screen - Final
Nose No Methicillin Resistant Staphylococcus aureus isolated.
12/01/24 07:28 Blood Culture - Final
Blood/Venous No Growth - Final Report
12/05/24 23:30 Streptococcus pneumoniae Antigen (M - Final
Urine Negative for Streptococcus pneumoniae antigen.
A negative result does not exclude infection with
Streptococcus pneumoniae. Clinical correlation is
recommended.
12/01/24 07:06 Blood Culture - Final
Blood/Venous No Growth - Final Report
12/05/24 07:45 Influenza Type A (PCR) - Final
Nasalpharynx Not Detected
Influenza Type A (H1) (PCR) - Final
Not Detected
Influenza Type A (H3) (PCR) - Final
Not Detected
Influenza Type B (PCR) - Final
Not Detected
Resp Syncytial Virus Type A (PCR) - Final
Not Detected
Resp Syncytial Virus Type B (PCR) - Final
Not Detected
Adenovirus DNA (PCR) - Final
Not Detected
Human Metapneumovirus (PCR) - Final
DETECTED
Parainfluenza Virus Type 1 (PCR) - Final
Not Detected
Parainfluenza Virus Type 2 (PCR) - Final
Not Detected
Parainfluenza Virus Type 3 (PCR) - Final
Not Detected
Parainfluenza Virus Type 4 - Final
Not Detected
Rhinovirus (PCR) - Final
Not Detected
12/03/24 03:17 Influenza Types A & B (YOANDY) - Final
Nasal Swab Negative for Influenza A & B, NAAT
Negative results must be combined with clinical observations
and patient history.
Nucleic Acid Amplification test (NAAT)performed on the
[employer] platform.
11/30/24 14:07 Urine Culture - Final
Urine
11/30/24 14:07 Influenza Types A & B (YOANDY) - Final
Nasal Swab Negative for Influenza A & B, NAAT
Negative results must be combined with clinical observations
and patient history.
Nucleic Acid Amplification test (NAAT)performed on the
[employer] platform.
Imaging:
12/03/2024 CXR (portable): Increased patchy opacities throughout the left lung. The known right upper lobe pneumonia is not well-visualized on this examination. No pleural effusion noted.
12/03/2024 CT chest without contrast: There is severe pneumonia noted in the left upper lobe and left lower lobe. Mild pneumonia in the right upper lobe. Mild cardiomegaly noted. Moderate calcific atherosclerosis in the coronary arteries. Please
see full dictation for additional detail. Film personally viewed.
--- NOTE | 2024-12-06 09:38 | W.PN.CD ---
Today's Communication / Plan
-
Start Lasix IV 40mg daily
Increase diltiazem to 180mg BID for pSVT
Impression / Plan
-
Acute hypoxic respiratory failure
-Multifactorial due to pneumonia and HFpEF
-on ABx
-Start Lasix 40mg IV daily which requires intensive monitoring and telemetry
Acute on chronic HFpEF
-severe exacerbation requiring IV diuresis, frequent labs, and telemetry monitoring
-diuresis as above
paroxysmal SVT: still having episodes
-TTE 12/05/24: LVEF 50-55%, moderate LVH, grade II DD, mild MR, mild AR, PASP 40-45
-off diltiazem drip
-increase diltiazem to 180 BID
Dementia:
-on medical therapy
Parkinson's Disease:
-on medical therapy
Physical Exam
Vital Signs/Labs
Vital Signs
Temp Pulse Resp BP Pulse Ox
97.3 F 83 15 137/73 96
12/06/24 03:00 12/06/24 08:08 12/06/24 07:04 12/06/24 08:08 12/06/24 07:04
12/06/24 04:33
12/06/24 04:33
Magnesium 2.1 mg/dl (1.6-2.3) 11/30/24 14:05
12/04/24 12/05/24
03:50 04:19
Pwj-B-Dfnuyqkclly Pept [id number]
LAB Results
12/05/24 12/05/24
04:19 19:56
Troponin I 0.136 H* 0.118 H*
Physical Exam
Cardiovascular: Rhythm & rate is regular and Pedal edema present
Respiratory: Respiratory effort normal and Lungs clear to auscul.
Data Reviewed
-
Date of Service: December 06, 2024
Medical Decision Making: Reviewed Test Results, Independent Historian Assessment, Test Interpretation and Review of Case with other Provider
EKG: Tracing Personally Visualized and interpreted
Echo: Report Reviewed by me
X-Ray/CT/US/MRI/NUC/PET: Report Reviewed by me
Labs: Labs Reviewed by me
[2024-12-06] MEDS: ULTRAM 50 MG PO ×2 (10:31→20:22)
[2024-12-06] MEDS: ROBITUSSIN DM 10 ML PO ×2 (10:31→20:22)
[2024-12-06] MEDS: LASIX 40 MG IV (10:31)
[2024-12-06] MEDS: DUONEB INH (11:06)
--- NOTE | 2024-12-06 12:00 | PTCARENOTE ---
Patient AAOx2-3, confused at times, forgetful, sets off bed/chair alarm frequently. Oriented to call martin and surroundings. C/o neck pain, PRN tramadol given with some relief. at bedside. VSS. Periods of pSVT, MD aware, closely monitoring.
Weaned to RA, sats 95%, spot checking d/t patient frequently pulling pulse ox off finger. Been up in chair most of day. Will continue to closely monitor.
--- NOTE | 2024-12-06 12:03 | CM ---
Patient with Hx dementia, Parkinsons Dx, fall with Dx Sepsis secondary to pneumonia /UTI, HF, paroxysmal SVT. O2 2L/BiPAP. Receiving IV Solumedrol, IV Lasix. PT & OT recommend skilled rehab. Per nurse; confused.
Met with patient and spoke with Jenny by phone; patient too confused to participate in conversation.
confirms she is patient's 24 hr caregiver. She says they are unable to afford to pay $37/hr for the caregiver that was found. The son and DIL live on the same property and their friend Ev is available to help as needed.
Jenny confirms that the patient does not have home O2.
Reviewed SNF referral responses with ; [facility], and [facility].
Provided update that [facility] will possibly have an available bed next week/mid week, however not guaranteed.
prefers [facility] SNF however is agreeable to [facility].
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
She would like to see patient work with PT again and then decide re; SNF vs home with VN.
CM coordinated appointment with and [facility] for today at 3pm.
Plan follow up with re; SNF for rehab vs home with HH.
--- NOTE | 2024-12-06 14:06 | W.PN.HOSP.TC ---
Today's Communication/Plan
-
Start daily Lasix IV
Assessment / Plan
Assessment / Plan
Impression.
Patient is a pleasant 84 years old with history of dementia, parkinsonism who came to the ER with ambulatory dysfunction, chest x-ray shows no acute finding, urinalysis shows UTI admitted for sepsis and started Rocephin.
During hospitalization developed shortness of breath, coughing, wheezing and chest x-ray shows newly developed pneumonia, started on Rocephin and Zithromax.
Patient has increased work of breathing, seen by pulmonology, developed respiratory distress require upgrade to IMU and start BiPAP.
Antibiotic switched to vancomycin and Zosyn.
Also patient was tachycardic, started on Cardizem, received 1 dose of Lasix.
12/06
Improved respiratory status, currently off antibiotic, started on Lasix 40 mg IV daily as per cardiology.
Assessment/plan
Sepsis secondary to Human Metapneumovirus pneumonia /UTI
Patient meets sepsis criteria on admission
Heart rate 90
Temperature max 102
Source of infection is UTI/community-acquired pneumonia
Initial chest x-ray shows no pneumonia
Initially started on IV antibiotic in form of Rocephin
Blood culture negative to date
Urine culture negative to date
12/03
Developed coughing and shortness of breath overnight.
Still with fever.
X-ray shows new opacity projecting over the mid/lower left lung which likely represents pneumonia.
CT chest shows:
1. SEVERE PNEUMONIA in the LEFT UPPER LOBE and LEFT LOWER LOBE.
2. Mild pneumonia in the right upper lobe.
3. Mild cardiomegaly.
4. Moderate calcific atherosclerotic plaque in the coronary arteries.
5. Severe calcific atherosclerotic plaque in the thoracic aorta.
6. 2.4 cm low-attenuation lesion in the liver containing peripheral calcification. Diagnostic possibilities are (1) a primary or metastatic hepatic tumor, (2) a hepatic abscess, or (3) a complex cyst or chronic intrahepatic hematoma.
Azithromycin added to Rocephin
12/04
Patient still running fever.
Seen by infectious disease and pulmonology.
Antibiotics switched to vancomycin and Zosyn
12/05
Fever improved
12/06
Human Metapneumovirus detected.
Currently off antibiotic-monitor off antibiotic
Acute hypoxic respiratory failure.
Secondary to pneumonia.
Appreciate pulmonology input.
Continue BiPAP.
12/06
Off BiPAP.
Off oxygen
Acute diastolic CHF
Patient was having shortness of breath and bilateral Rales on physical exam[place] [address]--> 8270
Continue IV diuresing in form of Lasix 40 mg IV daily
Daily weight.
Strict I's and O's.
Consulted cardiology.
Most recent echo shows :
Normal biventricular size and systolic function without regional wall motion
abnormality.
Moderate concentric left ventricular hypertrophy.
Grade II diastolic dysfunction suggestive of increased filling pressures.
Mild mitral regurgitation.
Mild aortic regurgitation.
Estimated PASP 40-45 mmHg with an estimated RA of 8 mmHg.
No prior study available for comparison.
Paroxysmal SVTs
Secondary to underlying sepsis and respiratory distress.
Respond to Cardizem, start low-dose oral Cardizem
12/05
Tachycardia improved, Cardizem drip discontinued and started on oral Cardizem
12/06
Oral Cardizem increased to 180 twice daily
Status post fall - acute on chronic ambulatory dysfunction
Denies hitting head.
Fall precautions.
PT/OT consulted in the ER who recommended SNF.
Social service for discharge planning.
HX dementia
Continue Aricept-Namenda
HX Parkinson disease
Continue Sinemet
CODE STATUS: Full code
DVT prophylaxis: Lovenox
Diet: Regular diet
Family communication: Discussed with at bedside.
Total time spent on today's encounter was 75 minutes which included time spent in counseling the patient/family regarding diagnosis and treatment plan as listed above, goals of care, and symptom management. Case was discussed with nursing staff,
specialists, and care coordinators/case management. All labs and imaging personally reviewed by me. Remainder the time spent in detailed review of previous records, lab data, imaging, and other medical provider documentation.
Anticipated Discharge: > 48 hours
Subjective/Interval History
-
Date of Service: December 06, 2024
Patient seen and examined at bedside, denies any chest pain , shortness of breath Improved, no abdominal pain, no nausea, no vomiting, no diarrhea or constipation.
Started on Lasix IV daily
Objective Data
-
Labs:
Laboratory Results
12/06/24
04:33
WBC 7.1
Hgb 12.5 L
Hct 37.4 L
Plt Count 174 D
Sodium 142
Potassium 3.6
Chloride 104
Carbon Dioxide 28
BUN 33 H
Creatinine 1.2
Glucose 113 H
Calcium 8.9
Vital Signs:
Vital Signs
Temp Pulse Resp BP Pulse Ox
98.7 F 160 27 138/89 95
12/06/24 11:17 12/06/24 10:03 12/06/24 10:00 12/06/24 10:03 12/06/24 08:09
I&O
12/05/24 12/06/24 12/07/24
06:59 06:59 06:59
Intake Total 290 / 290 170 / 170
Output Total 350 / 350
Balance 290 / 290 -180 / -180
Physical Exam
-
General: Respiratory Distress and Appears in Distress
HEENT: Normocephalic, Atraumatic, Moist Mucous Membranes, No Ptosis, PERRLA and Nose Appears Normal
Respiratory: Wheezes, Rales, Rhonchi, Crackles and Non Labored Respirations
Cardiac: Regular Rhythm, S1/S2 and Tachycardic
Breast: Deferred by me
GI: Soft, Nontender, Nondistended and Normal Bowel Sounds
Genito-urinary: No Costovertebral Tender
Musculoskeletal: No Clubbing, No Cyanosis and No Edema
Skin: Warm
Neuro: Awake, Alert, No Motor Deficits and Other
Psych: Calm
Data Reviewed
-
Diagnostic Radiology: Image personally visualized and interpreted and Report Reviewed by me
CT Scan: Image personally visualized and interpreted and Report Reviewed by me
Ultrasound: Image personally visualized and interpreted and Report Reviewed by me
MRI: Image personally visualized and interpreted and Report Reviewed by me
Medical Tests (Nuc Med, Echo etc): Image personally visualized and interpreted and Report Reviewed by me
Labs: Labs Reviewed by me
Old Records: Reviewed
--- NOTE | 2024-12-06 15:00 | W.PN.PUL3 ---
Today's Communication / Plan
-
-Switch to PO Prednisone 30 mg daily for 3 days
-Switch scheduled Duoneb to PRN in view of tachycardia after nebz
-d/c BIPAP
-Continue Diuresis
-Pulmonary service will sign off, please call as needed.
-Out patient Pulm follow up
Assessment
-
Patient is a84 y/o gentleman who was brought to the hospital for weakness and falls. He was noted to have Pneumonia and pyuria. He was started on Rocephin. Overnight, he became more short of breath with wheezing. CT was performed which was
suggestive of multifocal pneumonia. Due to increased wheezing and increased work of breathing, pulmonary consult was requested for further input. Patient unable to provide any history, information obtained from at bedside.
12/03, patient later developed episode of emesis with increased respiratory distress, requiring BIPAP and transfer to IMU.
#1. Multifocal Pneumonia, Concern for aspiration pneumonia. Influenza screen negative. Blood culture for 48 hours negative. COVID-19 screen negative. In view of respiratory distress, need for BIPAP, coverage was broadened to Vancomycin/Zosyn on
12/03.
-Metapneumovirus noted on extended viral panel: antibiotics stopped 12/05
-Speech/swallow evaluation, as aspiration risk
#2. Acute bronchospasm, likely related to #1, improving. Work of breathing continues to improve. Off BIPAP now
-Switch to PO Prednisone
-Change scheduled Duoneb to PRN with SVTs
-d/c BIPAP
-No known h/o COPD/Asthma but has long standing smoking history, might have underlying COPD, out patient evaluation
#3. Paroxysmal SVT and Acute on chronic HFpEF
-Cardiology service on case
-Iv Lasix
Other medical diagnoses:
-Parkinsonism
-Dementia
Total time spent on this consultation/encounter _32__ minutes which includes review of history, physical exam, medications, laboratory data, personal review of imaging, extensive review of outpatient records, discussion with care team and
respiratory therapy.
Data:
ECHO 12/2024: Normal biventricular size and systolic function without regional wall motion abnormality.
Moderate concentric left ventricular hypertrophy.
Grade II diastolic dysfunction suggestive of increased filling pressures.
Mild mitral regurgitation.
Mild aortic regurgitation.
Estimated PASP 40-45 mmHg with an estimated RA of 8 mmHg.
No prior study available for comparison.
CT Chest 12/2024: 1. SEVERE PNEUMONIA in the LEFT UPPER LOBE and LEFT LOWER LOBE.
2. Mild pneumonia in the right upper lobe.
3. Mild cardiomegaly.
4. Moderate calcific atherosclerotic plaque in the coronary arteries.
5. Severe calcific atherosclerotic plaque in the thoracic aorta.
6. 2.4 cm low-attenuation lesion in the liver containing peripheral calcification. Diagnostic possibilities are (1) a primary or metastatic hepatic tumor, (2) a hepatic abscess, or (3) a complex cyst or chronic intrahepatic hematoma.
Subjective Data
-
Date of Service:
Date of Service: December 06, 2024
Subjective:
Off BIPAP, no wheezing this morning.
Review of Systems
Genitourinary: Other (No new symptoms reported )
Objective Data
Data Reviewed
Vital Signs / I&O / Oxygen:
Vital Signs
Temp Pulse Resp BP Pulse Ox
98.7 F 160 27 138/89 95
12/06/24 11:17 12/06/24 10:03 12/06/24 10:00 12/06/24 10:03 12/06/24 08:09
Intake and Output
12/05/24 12/06/24 12/07/24
06:59 06:59 06:59
Intake Total 290 / 290 170 / 170
Output Total 350 / 350
Balance 290 / 290 -180 / -180
SaO2 95
Nasal Cannula flow liters per 2
minute
Physical Exam
General: Comfortable
HEENT: Normocephalic
Cardiovascular: Regular Rhythm
Respiratory: Clear and Non-Labored Respirations
GI: Soft and Non Distended
Neurology: Awake and Alert
Skin: Warm
Labs/Micro/Reports
Lab Data
12/06/24 04:33
12/06/24 04:33
Microbiology
12/05/24 01:11 Nose MRSA Screen - Final
No Methicillin Resistant Staphylococcus aureus isolated.
12/01/24 07:28 Blood/Venous Blood Culture - Final
No Growth - Final Report
12/05/24 23:30 Urine Streptococcus pneumoniae Antigen (M - Final
Negative for Streptococcus pneumoniae antigen.
A negative result does not exclude infection with
Streptococcus pneumoniae. Clinical correlation is
recommended.
12/01/24 07:06 Blood/Venous Blood Culture - Final
No Growth - Final Report
12/05/24 07:45 Nasalpharynx Influenza Type A (PCR) - Final
Not Detected
12/05/24 07:45 Nasalpharynx Influenza Type A (H1) (PCR) - Final
Not Detected
12/05/24 07:45 Nasalpharynx Influenza Type A (H3) (PCR) - Final
Not Detected
12/05/24 07:45 Nasalpharynx Influenza Type B (PCR) - Final
Not Detected
12/05/24 07:45 Nasalpharynx Resp Syncytial Virus Type A (PCR) - Final
Not Detected
12/05/24 07:45 Nasalpharynx Resp Syncytial Virus Type B (PCR) - Final
Not Detected
12/05/24 07:45 Nasalpharynx Adenovirus DNA (PCR) - Final
Not Detected
12/05/24 07:45 Nasalpharynx Human Metapneumovirus (PCR) - Final
DETECTED
12/05/24 07:45 Nasalpharynx Parainfluenza Virus Type 1 (PCR) - Final
Not Detected
12/05/24 07:45 Nasalpharynx Parainfluenza Virus Type 2 (PCR) - Final
Not Detected
12/05/24 07:45 Nasalpharynx Parainfluenza Virus Type 3 (PCR) - Final
Not Detected
12/05/24 07:45 Nasalpharynx Parainfluenza Virus Type 4 - Final
Not Detected
12/05/24 07:45 Nasalpharynx Rhinovirus (PCR) - Final
Not Detected
[2024-12-06] MEDS: LOVENOX 40 MG SC (17:38)
[2024-12-06] MEDS: XALATAN OPHTHALMIC SOLUTION BOTH EYES (19:09)
[2024-12-06] MEDS: CARDIZEM CD 180 MG PO (19:33)
[2024-12-06] MEDS: ZOLOFT 50 MG PO (20:22)
[2024-12-06] MEDS: COLACE PO (20:25)
--- NOTE | 2024-12-06 20:41 | PTCARENOTE ---
Received pt at change of shift. Pt AAOx1; only oriented to self. Pt pleasantly confused. Sets bed alarm off frequently. Pulled IV out. Notified VAT. [employer] P[employer]ER at bedside placing a new site. Pt has insp/exp wheeze with frequent moist cough,
crackles, and rhonchi. Notified RT. Breathing tx being given currently. Bed alarm active. Attempting to reorient pt frequently. Call martin within reach.
[2024-12-07] VITALS (11 sets, daily range): BP systolic 130–161; BP diastolic 68–135; BMI 26.3
[2024-12-07 04:54] LABS: Hematocrit 36.3 % (39.0-52.0); Hemoglobin 12.2 g/dL (13.0-18.0); Mean Corp Hgb Conc. 33.6 g/dL (33.0-37.0); Mean Corpuscular Hgb 28.2 pg (27.0-31.0); Mean Corpuscular Volume 83.8 fL (80.0-94.0); Mean Platelet Volume 9.6 fL (7.4-10.4); Platelet Count 205 10^3/uL (130-400); Red Blood Cell Count 4.33 10^6/uL (4.70-6.10); Red Cell Dist. Width 13.5 % (11.5-14.5); White Blood Cell Count 7.7 10^3/uL (4.8-10.8)
[2024-12-07 05:26] LABS: Blood Urea Nitrogen 41 mg/dl (9-20); Carbon Dioxide 27 mmol/L (22-30); Chloride 105 mmol/L (98-107); Estimated Creatinine Clearance 50 ml/min; Glucose 117 mg/dl (70-99); Potassium 3.9 mmol/L (3.5-5.1); Sodium 140 mmol/L (135-145); eGFR > 60.00
[2024-12-07] MEDS: SENOKOT PO (07:43)
[2024-12-07] MEDS: COLACE PO ×2 (07:43→20:22)
[2024-12-07] MEDS: LASIX 40 MG IV (08:01)
[2024-12-07] MEDS: DELTASONE 30 MG PO (08:02)
[2024-12-07] MEDS: THERAGRAN 1 TABLET PO (08:02)
[2024-12-07] MEDS: NAMENDA 10 MG PO ×2 (08:02→20:22)
[2024-12-07] MEDS: SINEMET 25-100 2 TABLET PO ×3 (08:02→20:22)
[2024-12-07] MEDS: CARDIZEM CD 180 MG PO (08:02)
[2024-12-07] MEDS: ROBITUSSIN DM 10 ML PO ×2 (08:03→20:22)
[2024-12-07] MEDS: VENTOLIN NEBULES 2.5 MG INH (08:05)
--- NOTE | 2024-12-07 08:08 | PTCARENOTE ---
Patient AAOxself this morning. Confused, setting off bed alarm and picking at leads. Reoriented. Chair and bed alarm in place. Patient up in chair waiting for breakfast and . Audible wheezes on assessment, PRN neb given. VSS. RA. No complaints.
After neb given, pSVT episodes occurring more frequently. Will discuss with MD. Continuing to monitor.
--- NOTE | 2024-12-07 09:10 | W.PN.CD ---
Today's Communication / Plan
-
-Change diltiazem from 180 twice a day to to 40 mg once a day and start metoprolol 25 mg once a day.
Impression / Plan
-
Acute hypoxic respiratory failure
-Multifactorial due to pneumonia and HFpEF
-on ABx
-Lasix 40mg IV daily which requires intensive monitoring and telemetry
Acute on chronic HFpEF
-severe exacerbation requiring IV diuresis, frequent labs, and telemetry monitoring
-diuresis as above
paroxysmal SVT: still having episodes
-Recurrent episodes of SVT in the form of atrial tachycardia noted.
-Patient had high frequency of A. tach in the morning and minimal activity during the day and this morning once again he had frequent episodes of atrial tachycardia.
-We will adjust medications as following.
-Change diltiazem from 180 twice a day to to 40 mg once a day and start metoprolol 25 mg once a day.
-TTE 12/05/24: LVEF 50-55%, moderate LVH, grade II DD, mild MR, mild AR, PASP 40-45
Dementia:
-on medical therapy
Parkinson's Disease:
-on medical therapy
Physical Exam
Vital Signs/Labs
Vital Signs
Temp Pulse Resp BP Pulse Ox
98.0 F 71 18 154/68 88
12/07/24 07:55 12/07/24 08:07 12/07/24 08:07 12/07/24 08:01 12/06/24 20:42
12/06/24 12/07/24 12/08/24
06:59 06:59 06:59
Actual Weight 80.8 kg
12/07/24 04:40
12/07/24 04:40
Magnesium 2.1 mg/dl (1.6-2.3) 11/30/24 14:05
12/04/24 12/05/24
03:50 04:19
Okg-L-Jjgeqaweydw Pept 97380 8270
LAB Results
12/05/24 12/05/24
:19 19:56
Troponin I 0.136 H* 0.118 H*
Physical Exam
Constitutional: No acute distress and Comfortable
EENT: Anicteric and Moist mucous membranes
Cardiovascular: Rhythm & rate is regular, Pedal edema is absent and JVD pressure is normal
Respiratory: Respiratory effort normal, Lungs clear to auscul., Wheeze Absent and Rhonchi Absent
GI: Non tender and Normal bowel sounds
Neuro/Psych: Oriented and AO x 3
Data Reviewed
-
Date of Service: December 07, 2024
Medical Decision Making: Reviewed Test Results, Test Interpretation and Review of Case with other Provider
EKG: Tracing Personally Visualized and interpreted
Echo: Report Reviewed by me
Labs: Labs Reviewed by me
Old Records: Reviewed
--- NOTE | 2024-12-07 15:46 | W.PN.HOSP.TC ---
Today's Communication/Plan
-
Added metoprolol
Assessment / Plan
Assessment / Plan
Impression.
Patient is a pleasant 84 years old with history of dementia, parkinsonism who came to the ER with ambulatory dysfunction, chest x-ray shows no acute finding, urinalysis shows UTI admitted for sepsis and started Rocephin.
During hospitalization developed shortness of breath, coughing, wheezing and chest x-ray shows newly developed pneumonia, started on Rocephin and Zithromax.
Patient has increased work of breathing, seen by pulmonology, developed respiratory distress require upgrade to IMU and start BiPAP.
Antibiotic switched to vancomycin and Zosyn.
Also patient was tachycardic, started on Cardizem, received 1 dose of Lasix.
12/06
Improved respiratory status, currently off antibiotic, started on Lasix 40 mg IV daily as per cardiology.
12/07
Added metoprolol XL 25 mg daily and Cardizem increased to 240 daily
Assessment/plan
Sepsis secondary to Human Metapneumovirus pneumonia /UTI
Patient meets sepsis criteria on admission
Heart rate 90
Temperature max 102
Source of infection is UTI/community-acquired pneumonia
Initial chest x-ray shows no pneumonia
Initially started on IV antibiotic in form of Rocephin
Blood culture negative to date
Urine culture negative to date
12/03
Developed coughing and shortness of breath overnight.
Still with fever.
X-ray shows new opacity projecting over the mid/lower left lung which likely represents pneumonia.
CT chest shows:
1. SEVERE PNEUMONIA in the LEFT UPPER LOBE and LEFT LOWER LOBE.
2. Mild pneumonia in the right upper lobe.
3. Mild cardiomegaly.
4. Moderate calcific atherosclerotic plaque in the coronary arteries.
5. Severe calcific atherosclerotic plaque in the thoracic aorta.
6. 2.4 cm low-attenuation lesion in the liver containing peripheral calcification. Diagnostic possibilities are (1) a primary or metastatic hepatic tumor, (2) a hepatic abscess, or (3) a complex cyst or chronic intrahepatic hematoma.
Azithromycin added to Rocephin
12/04
Patient still running fever.
Seen by infectious disease and pulmonology.
Antibiotics switched to vancomycin and Zosyn
12/05
Fever improved
12/06
Human Metapneumovirus detected.
Currently off antibiotic-monitor off antibiotic
Acute hypoxic respiratory failure.
Secondary to pneumonia/diastolic CHF
Appreciate pulmonology input.
Continue BiPAP.
12/06
Off BiPAP.
Off oxygen
Acute diastolic CHF
Patient was having shortness of breath and bilateral Rales on physical exam[place] [address]--> 8270
Continue IV diuresing in form of Lasix 40 mg IV daily
Daily weight.
Strict I's and O's.
Consulted cardiology.
Most recent echo shows :
Normal biventricular size and systolic function without regional wall motion
abnormality.
Moderate concentric left ventricular hypertrophy.
Grade II diastolic dysfunction suggestive of increased filling pressures.
Mild mitral regurgitation.
Mild aortic regurgitation.
Estimated PASP 40-45 mmHg with an estimated RA of 8 mmHg.
No prior study available for comparison.
Paroxysmal SVTs
Secondary to underlying sepsis and respiratory distress.
Respond to Cardizem, start low-dose oral Cardizem
12/05
Tachycardia improved, Cardizem drip discontinued and started on oral Cardizem
12/06
Oral Cardizem increased to 180 twice daily
12/07
Oral Cardizem increased to 240.
Added metoprolol XL
Status post fall - acute on chronic ambulatory dysfunction
Denies hitting head.
Fall precautions.
PT/OT consulted in the ER who recommended SNF.
Social service for discharge planning.
HX dementia
Continue Aricept-Namenda
HX Parkinson disease
Continue Sinemet
CODE STATUS: Full code
DVT prophylaxis: Lovenox
Diet: Regular diet
Family communication: Discussed with at bedside.
Total time spent on today's encounter was 75 minutes which included time spent in counseling the patient/family regarding diagnosis and treatment plan as listed above, goals of care, and symptom management. Case was discussed with nursing staff,
specialists, and care coordinators/case management. All labs and imaging personally reviewed by me. Remainder the time spent in detailed review of previous records, lab data, imaging, and other medical provider documentation.
Anticipated Discharge: 24 - 48 hours
Subjective/Interval History
-
Date of Service: December 07, 2024
Patient seen and examined at bedside, out of bed to chair, at bedside, improved tachycardia and shortness of breath.
Lower extremity team improved.
Seen by cardiology who recommended to continue IV Lasix, increase Cardizem to 240 and add metoprolol 25 mg.
Objective Data
-
Labs:
Laboratory Results
12/07/24
04:40
WBC 7.7
Hgb 12.2 L
Hct 36.3 L
Plt Count 205
Sodium 140
Potassium 3.9
Chloride 105
Carbon Dioxide 27
BUN 41 H
Creatinine 1.1
Glucose 117 H
Calcium 9.0
Vital Signs:
Vital Signs
Temp Pulse Resp BP Pulse Ox
98.0 F 77 21 145/70 95
12/07/24 07:55 12/07/24 12:00 12/07/24 10:00 12/07/24 12:00 12/07/24 08:00
I&O
12/06/24 12/07/24 12/08/24
06:59 06:59 06:59
Intake Total 170 / 170
Output Total 350 / 350 975 / 975 200 / 200
Balance -180 / -180 -975 / -975 -200 / -200
Physical Exam
-
General: Respiratory Distress and Appears in Distress
HEENT: Normocephalic, Atraumatic, Moist Mucous Membranes, No Ptosis, PERRLA and Nose Appears Normal
Respiratory: Wheezes, Rales, Rhonchi, Crackles and Non Labored Respirations
Cardiac: Regular Rhythm, S1/S2 and Tachycardic
Breast: Deferred by me
GI: Soft, Nontender, Nondistended and Normal Bowel Sounds
Genito-urinary: No Costovertebral Tender
Musculoskeletal: No Clubbing, No Cyanosis and No Edema
Skin: Warm
Neuro: Awake, Alert, No Motor Deficits and Other
Psych: Calm
Data Reviewed
-
Diagnostic Radiology: Image personally visualized and interpreted and Report Reviewed by me
CT Scan: Image personally visualized and interpreted and Report Reviewed by me
Ultrasound: Image personally visualized and interpreted and Report Reviewed by me
MRI: Image personally visualized and interpreted and Report Reviewed by me
Medical Tests (Nuc Med, Echo etc): Image personally visualized and interpreted and Report Reviewed by me
Labs: Labs Reviewed by me
Old Records: Reviewed
[2024-12-07] MEDS: LOVENOX 40 MG SC (17:50)
[2024-12-07] MEDS: XALATAN OPHTHALMIC SOLUTION 1 DROP BOTH EYES (17:50)
[2024-12-07] MEDS: ZOLOFT 50 MG PO (20:22)
[2024-12-07] MEDS: ULTRAM 50 MG PO (20:22)
[2024-12-08] VITALS (39 sets, daily range): BP systolic 90–184; BP diastolic 61–128; BMI 26.0
[2024-12-08] MEDS: ROBITUSSIN DM 10 ML PO (03:08)
[2024-12-08 03:26] LABS: Hematocrit 36.7 % (39.0-52.0); Hemoglobin 12.3 g/dL (13.0-18.0); Mean Corp Hgb Conc. 33.5 g/dL (33.0-37.0); Mean Corpuscular Hgb 28.1 pg (27.0-31.0); Mean Corpuscular Volume 83.8 fL (80.0-94.0); Mean Platelet Volume 9.8 fL (7.4-10.4); Platelet Count 239 10^3/uL (130-400); Red Blood Cell Count 4.38 10^6/uL (4.70-6.10); Red Cell Dist. Width 13.4 % (11.5-14.5); White Blood Cell Count 8.4 10^3/uL (4.8-10.8)
[2024-12-08 03:38] LABS: Blood Urea Nitrogen 43 mg/dl (9-20); Calcium 9.2 mg/dl (8.4-10.2); Carbon Dioxide 30 mmol/L (22-30); Chloride 107 mmol/L (98-107); Estimated Creatinine Clearance 46 ml/min; Glucose 98 mg/dl (70-99); Magnesium 2.3 mg/dl (1.6-2.3); Sodium 142 mmol/L (135-145); eGFR 59.63
--- NOTE | 2024-12-08 06:04 | PTCARENOTE ---
Received pt at change of shift. Pt oriented only to self. Drowsy but restless. More easily redirectable this shift than previous night. No events noted this shift. VSS at this time. resting in bed with call martin in reach.
[2024-12-08] MEDS: CARDIZEM CD 240 MG PO (09:11)
[2024-12-08] MEDS: TOPROL XL 25 MG PO (09:11)
[2024-12-08] MEDS: SENOKOT 17.2 MG PO (09:13)
[2024-12-08] MEDS: COLACE 200 MG PO (09:13)
[2024-12-08] MEDS: SINEMET 25-100 2 TABLET PO ×3 (09:14→20:37)
[2024-12-08] MEDS: NAMENDA 10 MG PO ×2 (09:14→20:39)
[2024-12-08] MEDS: THERAGRAN 1 TABLET PO (09:15)
[2024-12-08] MEDS: DELTASONE 30 MG PO (09:15)
[2024-12-08] MEDS: LASIX 40 MG IV ×2 (09:28→17:50)
--- NOTE | 2024-12-08 09:35 | PTCARENOTE ---
Addendum entered by Melinda Cespedes RN 12/08/24 10:57:
Heart rate increased to the 140s again, notified Dr. Sanchez, IV Cardizem administered with relief. Blood pressur eis now 170/81, heart rate 76. Patient verbalizing that he is feeling better. Patient was unable to chew food this morning, diet
modified. Pulse ox varies between 90-92%. Oxygen 2 liters administered via nasal cannula at this time. Pulse ox 96%. Chest xray completed.
Original Note:
Patient having episodes of coughing with no sputum, heart rate increased to 140s, blood pressure 173/113. Morning meds were administered. Heart rate did break back to the 90s when coughing stopped. Patient is wheezing. Pulse os 92% on room air.
Patient is confused at this time.
[2024-12-08] MEDS: CARDIZEM 10 MG IV (09:58)
--- NOTE | 2024-12-08 10:13 | W.PN.HOSP.TC ---
Today's Communication/Plan
-
IV Cardizem/IV steroid
Assessment / Plan
Assessment / Plan
Impression.
Patient is a pleasant 84 years old with history of dementia, parkinsonism who came to the ER with ambulatory dysfunction, chest x-ray shows no acute finding, urinalysis shows UTI admitted for sepsis and started Rocephin.
During hospitalization developed shortness of breath, coughing, wheezing and chest x-ray shows newly developed pneumonia, started on Rocephin and Zithromax.
Patient has increased work of breathing, seen by pulmonology, developed respiratory distress require upgrade to IMU and start BiPAP.
Antibiotic switched to vancomycin and Zosyn.
Also patient was tachycardic, started on Cardizem, received 1 dose of Lasix.
12/06
Improved respiratory status, currently off antibiotic, started on Lasix 40 mg IV daily as per cardiology.
12/07
Added metoprolol XL 25 mg daily and Cardizem increased to 240 daily
12/08
More short of breath and tachycardic, given Cardizem IV and resumed Adderall and DuoNeb
Assessment/plan
Sepsis secondary to Human Metapneumovirus pneumonia /UTI
Patient meets sepsis criteria on admission
Heart rate 90
Temperature max 102
Source of infection is UTI/community-acquired pneumonia
Initial chest x-ray shows no pneumonia
Initially started on IV antibiotic in form of Rocephin
Blood culture negative to date
Urine culture negative to date
12/03
Developed coughing and shortness of breath overnight.
Still with fever.
X-ray shows new opacity projecting over the mid/lower left lung which likely represents pneumonia.
CT chest shows:
1. SEVERE PNEUMONIA in the LEFT UPPER LOBE and LEFT LOWER LOBE.
2. Mild pneumonia in the right upper lobe.
3. Mild cardiomegaly.
4. Moderate calcific atherosclerotic plaque in the coronary arteries.
5. Severe calcific atherosclerotic plaque in the thoracic aorta.
6. 2.4 cm low-attenuation lesion in the liver containing peripheral calcification. Diagnostic possibilities are (1) a primary or metastatic hepatic tumor, (2) a hepatic abscess, or (3) a complex cyst or chronic intrahepatic hematoma.
Azithromycin added to Rocephin
12/04
Patient still running fever.
Seen by infectious disease and pulmonology.
Antibiotics switched to vancomycin and Zosyn
12/05
Fever improved
12/06
Human Metapneumovirus detected.
Currently off antibiotic-monitor off antibiotic
Acute hypoxic respiratory failure.
Secondary to pneumonia/diastolic CHF
Appreciate pulmonology input.
Continue BiPAP.
12/06
Off BiPAP.
Off oxygen
12/08
No shortness of breath and wheezing.
Back to oxygen.
Resume Solu-Medrol.
Resume DuoNebs.
Pulmonology consult
Acute diastolic CHF
Patient was having shortness of breath and bilateral Rales on physical exam[place] [address]--> 8270
Continue IV diuresing in form of Lasix 40 mg IV daily
Daily weight.
Strict I's and O's.
Consulted cardiology.
Most recent echo shows :
Normal biventricular size and systolic function without regional wall motion
abnormality.
Moderate concentric left ventricular hypertrophy.
Grade II diastolic dysfunction suggestive of increased filling pressures.
Mild mitral regurgitation.
Mild aortic regurgitation.
Estimated PASP 40-45 mmHg with an estimated RA of 8 mmHg.
No prior study available for comparison.
Paroxysmal SVTs
Secondary to underlying sepsis and respiratory distress.
Respond to Cardizem, start low-dose oral Cardizem
12/05
Tachycardia improved, Cardizem drip discontinued and started on oral Cardizem
12/06
Oral Cardizem increased to 180 twice daily
12/07
Oral Cardizem increased to 240.
Added metoprolol XL
12/08
Still with tachycardia.
Added 1 dose of Cardizem IV
Status post fall - acute on chronic ambulatory dysfunction
Denies hitting head.
Fall precautions.
PT/OT consulted in the ER who recommended SNF.
Social service for discharge planning.
HX dementia
Continue Aricept-Namenda
HX Parkinson disease
Continue Sinemet
CODE STATUS: Full code
DVT prophylaxis: Lovenox
Diet: Regular diet
Family communication: Discussed with at bedside.
Total time spent on today's encounter was 75 minutes which included time spent in counseling the patient/family regarding diagnosis and treatment plan as listed above, goals of care, and symptom management. Case was discussed with nursing staff,
specialists, and care coordinators/case management. All labs and imaging personally reviewed by me. Remainder the time spent in detailed review of previous records, lab data, imaging, and other medical provider documentation.
Anticipated Discharge: > 48 hours
Subjective/Interval History
-
Date of Service: December 08, 2024
Patient is more tachycardic today, more short of breath.
Was given additional dose of Cardizem 10 mg IV.
Resumed DuoNebs and IV Solu-Medrol.
Asked pulmonology to see.
Objective Data
-
Labs:
Laboratory Results
12/08/24
03:15
WBC 8.4
Hgb 12.3 L
Hct 36.7 L
Plt Count 239
Sodium 142
Potassium 4.0
Chloride 107
Carbon Dioxide 30
BUN 43 H
Creatinine 1.2
Glucose 98
Calcium 9.2
Vital Signs:
Vital Signs
Temp Pulse Resp BP Pulse Ox
98.6 F 140 23 176/126 90
12/08/24 07:05 12/08/24 09:58 12/08/24 09:32 12/08/24 09:58 12/08/24 09:32
I&O
12/07/24 12/08/24 12/09/24
06:59 06:59 06:59
Output Total 975 / 975 525 / 525
Balance -975 / -975 -525 / -525
Physical Exam
-
General: Respiratory Distress and Appears in Distress
HEENT: Normocephalic, Atraumatic, Moist Mucous Membranes, No Ptosis, PERRLA and Nose Appears Normal
Respiratory: Wheezes, Rales, Rhonchi, Crackles and Non Labored Respirations
Cardiac: Regular Rhythm, S1/S2 and Tachycardic
Breast: Deferred by me
GI: Soft, Nontender, Nondistended and Normal Bowel Sounds
Genito-urinary: No Costovertebral Tender
Musculoskeletal: No Clubbing, No Cyanosis and No Edema
Skin: Warm
Neuro: Awake, Alert, No Motor Deficits and Other
Psych: Calm
Data Reviewed
-
Diagnostic Radiology: Image personally visualized and interpreted and Report Reviewed by me
CT Scan: Image personally visualized and interpreted and Report Reviewed by me
Ultrasound: Image personally visualized and interpreted and Report Reviewed by me
MRI: Image personally visualized and interpreted and Report Reviewed by me
Medical Tests (Nuc Med, Echo etc): Image personally visualized and interpreted and Report Reviewed by me
Labs: Labs Reviewed by me
Old Records: Reviewed
--- NOTE | 2024-12-08 11:01 | W.PN.PUL3 ---
Today's Communication / Plan
-
- Check procalcitonin
- Increase Lasix to 40 mg IV twice daily
- Follow-up chest x-ray and BMP in a.m.
- Agree with scheduled DuoNeb and IV steroids
Assessment
-
Patient is a84 y/o gentleman who was brought to the hospital for weakness and falls. He was noted to have Pneumonia and pyuria. He was started on Rocephin. Overnight, he became more short of breath with wheezing. CT was performed which was
suggestive of multifocal pneumonia. Due to increased wheezing and increased work of breathing, pulmonary consult was requested for further input. Patient unable to provide any history, information obtained from at bedside.
12/03, patient later developed episode of emesis with increased respiratory distress, requiring BIPAP and transfer to IMU. Patient was subsequently noted to have metapneumovirus and antibiotics were discontinued. He gradually improved and
pulmonary infectious disease service signed off.
12/08, patient noted to have increased wheezing again and pulmonary service was reconsulted
#1. Multifocal Pneumonia, felt to be related to metapneumovirus. With current worsening, superimposed infection certainly a concern however patient is otherwise afebrile and has a normal WBC count
-Metapneumovirus noted on extended viral panel: antibiotics stopped 12/05
-Check procalcitonin. Will discuss with infectious disease service if we should start antibiotics
-Worsening pulmonary edema also in differential
#2. Acute bronchospasm, likely related to #1, worse this morning.
-Agree with switching DuoNebs to scheduled and addition of steroids
-No known h/o COPD/Asthma but has long standing smoking history, might have underlying COPD, out patient evaluation
-Work of breathing appears to be normal, monitor closely
-X-ray appears more congested concerning for volume overload, will increase diuresis
#3. Paroxysmal SVT and Acute on chronic HFpEF
-Cardiology service on case
-Increase Lasix to 40 mg IV twice daily
-proBNP in a.m.
Other medical diagnoses:
-Parkinsonism
-Dementia
Total time spent on this consultation/encounter _42__ minutes which includes review of history, physical exam, medications, laboratory data, personal review of imaging, extensive review of outpatient records, discussion with care team and
respiratory therapy.
Data:
ECHO 12/2024: Normal biventricular size and systolic function without regional wall motion abnormality.
Moderate concentric left ventricular hypertrophy.
Grade II diastolic dysfunction suggestive of increased filling pressures.
Mild mitral regurgitation.
Mild aortic regurgitation.
Estimated PASP 40-45 mmHg with an estimated RA of 8 mmHg.
No prior study available for comparison.
CT Chest 12/2024: 1. SEVERE PNEUMONIA in the LEFT UPPER LOBE and LEFT LOWER LOBE.
2. Mild pneumonia in the right upper lobe.
3. Mild cardiomegaly.
4. Moderate calcific atherosclerotic plaque in the coronary arteries.
5. Severe calcific atherosclerotic plaque in the thoracic aorta.
6. 2.4 cm low-attenuation lesion in the liver containing peripheral calcification. Diagnostic possibilities are (1) a primary or metastatic hepatic tumor, (2) a hepatic abscess, or (3) a complex cyst or chronic intrahepatic hematoma.
Subjective Data
-
Date of Service:
Date of Service: December 08, 2024
Subjective:
Patient comfortably sitting in bed but has more wheezing overnight.
Review of Systems
Genitourinary: Other (No other new symptoms reported)
Objective Data
Data Reviewed
Vital Signs / I&O / Oxygen:
Vital Signs
Temp Pulse Resp BP Pulse Ox
98.6 F 140 23 176/126 90
12/08/24 07:05 12/08/24 09:58 12/08/24 09:32 12/08/24 09:58 12/08/24 09:32
Intake and Output
12/07/24 12/08/24 12/09/24
06:59 06:59 06:59
Output Total 975 / 975 525 / 525
Balance -975 / -975 -525 / -525
SaO2 90
Nasal Cannula flow liters per 2
minute
Physical Exam
General: Comfortable
HEENT: Normocephalic
Cardiovascular: Regular Rhythm and Peripheral Edema (Trace pedal edema)
Respiratory: Wheeze (Bilateral diffuse wheezing)
GI: Soft and Non Distended
Neurology: Awake and Alert
Skin: Warm
Labs/Micro/Reports
Lab Data
12/08/24 03:15
12/08/24 03:15
Microbiology
12/05/24 01:11 Nose MRSA Screen - Final
No Methicillin Resistant Staphylococcus aureus isolated.
12/01/24 07:28 Blood/Venous Blood Culture - Final
No Growth - Final Report
12/05/24 23:30 Urine Streptococcus pneumoniae Antigen (M - Final
Negative for Streptococcus pneumoniae antigen.
A negative result does not exclude infection with
Streptococcus pneumoniae. Clinical correlation is
recommended.
12/01/24 07:06 Blood/Venous Blood Culture - Final
No Growth - Final Report
12/05/24 07:45 Nasalpharynx Influenza Type A (PCR) - Final
Not Detected
12/05/24 07:45 Nasalpharynx Influenza Type A (H1) (PCR) - Final
Not Detected
12/05/24 07:45 Nasalpharynx Influenza Type A (H3) (PCR) - Final
Not Detected
12/05/24 07:45 Nasalpharynx Influenza Type B (PCR) - Final
Not Detected
12/05/24 07:45 Nasalpharynx Resp Syncytial Virus Type A (PCR) - Final
Not Detected
12/05/24 07:45 Nasalpharynx Resp Syncytial Virus Type B (PCR) - Final
Not Detected
12/05/24 07:45 Nasalpharynx Adenovirus DNA (PCR) - Final
Not Detected
12/05/24 07:45 Nasalpharynx Human Metapneumovirus (PCR) - Final
DETECTED
12/05/24 07:45 Nasalpharynx Parainfluenza Virus Type 1 (PCR) - Final
Not Detected
12/05/24 07:45 Nasalpharynx Parainfluenza Virus Type 2 (PCR) - Final
Not Detected
12/05/24 07:45 Nasalpharynx Parainfluenza Virus Type 3 (PCR) - Final
Not Detected
12/05/24 07:45 Nasalpharynx Parainfluenza Virus Type 4 - Final
Not Detected
12/05/24 07:45 Nasalpharynx Rhinovirus (PCR) - Final
Not Detected
[2024-12-08] MEDS: DUONEB 3 ML INH ×3 (11:27→19:17)
[2024-12-08] MEDS: SOLU-MEDROL PF 40 MG IV ×2 (11:30→20:37)
--- NOTE | 2024-12-08 11:31 | W.PN.CD ---
Today's Communication / Plan
-
- Increasing Metoprolol.
-BP control with Hydralazine prn.
Impression / Plan
-
Acute hypoxic respiratory failure
-Multifactorial due to pneumonia and HFpEF
-on ABx
-Lasix 40mg IV daily which requires intensive monitoring and telemetry
Acute on chronic HFpEF
-severe exacerbation requiring IV diuresis, frequent labs, and telemetry monitoring
-diuresis as above
paroxysmal SVT: still having episodes
-Recurrent episodes of SVT in the form of atrial tachycardia noted.
-Patient had high frequency of A. tach in the morning and minimal activity during the day and this morning once again he had frequent episodes of atrial tachycardia.
-We will adjust medications as following.
-Change diltiazem from 120 mg once a day and increase metoprolol 50 mg twice a day.
-TTE 12/05/24: LVEF 50-55%, moderate LVH, grade II DD, mild MR, mild AR, PASP 40-45
Dementia:
-on medical therapy
Parkinson's Disease:
-on medical therapy
Physical Exam
Vital Signs/Labs
Vital Signs
Temp Pulse Resp BP Pulse Ox
98.6 F 77 19 170/81 96
12/08/24 07:05 12/08/24 10:35 12/08/24 10:35 12/08/24 10:35 12/08/24 11:13
12/07/24 12/08/24 12/09/24
06:59 06:59 06:59
Actual Weight 80.8 kg 79.7 kg
12/08/24 03:15
12/08/24 03:15
Magnesium 2.3 mg/dl (1.6-2.3) 12/08/24 03:15
12/04/24 12/05/24
03:50 04:19
Mgj-G-Amqplbkbjwi Pept [id number]
LAB Results
12/05/24
19:56
Troponin I 0.118 H*
Physical Exam
Constitutional: No acute distress and Comfortable
EENT: Anicteric and Moist mucous membranes
Cardiovascular: Rhythm & rate is regular, Pedal edema is absent and JVD pressure is normal
Respiratory: Respiratory effort normal, Lungs clear to auscul., Crackles Present and Rhonchi Present
GI: Soft, Distention absent and Normal bowel sounds
Neuro/Psych: Alert, Oriented and AO x 3
Data Reviewed
-
Date of Service: December 08, 2024
Medical Decision Making: Reviewed Test Results, Test Interpretation and Review of Case with other Provider
EKG: Tracing Personally Visualized and interpreted (Telemetry againshoed paroxysms of AT in the morning. Consistently present in AM - not related to nebulizer or inhalers.)
Echo: Report Reviewed by me
Labs: Labs Reviewed by me
Old Records: Reviewed
[2024-12-08] MEDS: APRESOLINE 5 MG IV (11:33)
[2024-12-08 11:37] LABS: Procalcitonin 0.14 ng/ml (0.0-0.25)
--- NOTE | 2024-12-08 14:56 | PTCARENOTE ---
After this mornings interventions patient is stating that he feels much better and he was able to eat majority of his modified lunch. Pulse ox is 96% on 2 liters oxygen via nasal cannula, blood pressure is now 132/72, heart rate has been stable in
the 60-70s even after nebulizer treatment administered. is at bedside.
[2024-12-08] MEDS: LOVENOX 40 MG SC (17:52)
[2024-12-08] MEDS: XALATAN OPHTHALMIC SOLUTION 1 DROP BOTH EYES (17:53)
[2024-12-08] MEDS: ZOLOFT 50 MG PO (20:38)
[2024-12-08] MEDS: TOPROL XL 50 MG PO (20:38)
[2024-12-08] MEDS: COLACE 100 MG PO (20:38)
[2024-12-09] VITALS (21 sets, daily range): BP systolic 126–158; BP diastolic 60–84; PULSE 61; O2SAT 98; BMI 25.1; BMI 25.6
--- NOTE | 2024-12-09 02:57 | PTCARENOTE ---
Assumed care of pt from dayshift RN. Pt ox1 (to self). 95% on 2L. Patient sat in chair for first two hours of shift. Pt has generalized weakness, ambulated from chair to bed with RW. Hygiene completed. Pt resting in bed with bed alarm on and call
martin in reach.
[2024-12-09] MEDS: SOLU-MEDROL PF 40 MG IV ×2 (04:41→12:35)
[2024-12-09 05:03] LABS: Hematocrit 36.8 % (39.0-52.0); Hemoglobin 12.5 g/dL (13.0-18.0); Mean Corpuscular Hgb 28.2 pg (27.0-31.0); Mean Corpuscular Volume 83.1 fL (80.0-94.0); Mean Platelet Volume 9.8 fL (7.4-10.4); Platelet Count 256 10^3/uL (130-400); Red Blood Cell Count 4.43 10^6/uL (4.70-6.10); Red Cell Dist. Width 13.2 % (11.5-14.5); White Blood Cell Count 8.8 10^3/uL (4.8-10.8)
[2024-12-09 05:31] LABS: NT-proBNP 9400 pg/ml
[2024-12-09 05:46] LABS: Blood Urea Nitrogen 42 mg/dl (9-20); Calcium 9.3 mg/dl (8.4-10.2); Carbon Dioxide 27 mmol/L (22-30); Chloride 102 mmol/L (98-107); Estimated Creatinine Clearance 50 ml/min; Glucose 142 mg/dl (70-99); Magnesium 2.3 mg/dl (1.6-2.3); Potassium 4.2 mmol/L (3.5-5.1); Sodium 138 mmol/L (135-145); eGFR > 60.00
[2024-12-09] MEDS: DUONEB 3 ML INH ×3 (07:52→22:36)
[2024-12-09] MEDS: SINEMET 25-100 2 TABLET PO ×3 (09:15→21:19)
[2024-12-09] MEDS: TOPROL XL 50 MG PO ×2 (09:16→21:19)
[2024-12-09] MEDS: SENOKOT PO (09:17)
[2024-12-09] MEDS: COLACE PO (09:17)
[2024-12-09] MEDS: THERAGRAN 1 TABLET PO (09:17)
[2024-12-09] MEDS: ROBITUSSIN DM 10 ML PO ×2 (09:17→22:35)
[2024-12-09] MEDS: NAMENDA 10 MG PO ×2 (09:17→21:19)
[2024-12-09] MEDS: LASIX 40 MG IV (09:18)
[2024-12-09] MEDS: CARDIZEM CD 120 MG PO (09:23)
--- NOTE | 2024-12-09 10:25 | W.PN.CD ---
Today's Communication / Plan
-
StopIV diuresis
PO Lasix starting tomorrow
Continue Dilt and Metoprolol. SVT seems to be improving
Impression / Plan
-
Acute hypoxic respiratory failure, improved
-Multifactorial due to pneumonia and HFpEF
-on ABx
-now off supplemental O2 and on room air
-Lasix 40mg IV today which requires intensive monitoring and telemetry
-Switch to PO Lasix 40mg daily starting tomorrow (was not on diuretics prior to admission)
Acute on chronic HFpEF
-severe exacerbation requiring IV diuresis, frequent labs, and telemetry monitoring
-diuresis as above
paroxysmal SVT: improving
-TTE 12/05/24: LVEF 50-55%, moderate LVH, grade II DD, mild MR, mild AR, PASP 40-45
-Recurrent episodes of SVT in the form of atrial tachycardia noted. Decreased in past 24 hours.
-Continue diltiazem 120 mg once a day and metoprolol 50 mg twice a day.
Dementia:
-on medical therapy
Parkinson's Disease:
-on medical therapy
Subjective: No CV complaints. Breathing feels improved.
Physical Exam
Vital Signs/Labs
Vital Signs
Temp Pulse Resp BP Pulse Ox
97.7 F 77 16 140/82 94
12/09/24 07:18 12/09/24 09:16 12/09/24 07:57 12/09/24 09:16 12/09/24 07:57
12/08/24 12/09/24 12/10/24
06:59 06:59 06:59
Actual Weight 175 lb 11.335 oz 169 lb 8.568 oz
12/09/24 04:52
12/09/24 04:52
Magnesium 2.3 mg/dl (1.6-2.3) 12/09/24 04:52
12/04/24 12/05/2412/09/25
03:50 04:19 04:52
Est-V-Mzomjdvfeak Pept [id number] 9400
Physical Exam
Constitutional: No acute distress and Comfortable
Cardiovascular: Rhythm & rate is regular, Pedal edema is absent, S1S2 is normal and Murmur/rub/gallop absent
Respiratory: Respiratory effort normal and Lungs clear to auscul.
Neuro/Psych: AO x 3
Data Reviewed
-
Date of Service: December 09, 2024
Medical Decision Making: Reviewed Test Results, Independent Historian Assessment, Test Interpretation and Review of Case with other Provider
EKG: Tracing Personally Visualized and interpreted
Echo: Report Reviewed by me
X-Ray/CT/US/MRI/NUC/PET: Image Personally Visualized and interpreted
Labs: Labs Reviewed by me
--- NOTE | 2024-12-09 13:20 | W.PN.PUL3 ---
Today's Communication / Plan
-
-DC IV steroids, switch to prednisone 30 mg daily for 3 more days
-Scheduled DuoNeb can be changed to as needed
-Diuresis per primary team and cardiology service. Monitor closely for signs of volume overload
Assessment
-
Patient is a84 y/o gentleman who was brought to the hospital for weakness and falls. He was noted to have Pneumonia and pyuria. He was started on Rocephin. Overnight, he became more short of breath with wheezing. CT was performed which was
suggestive of multifocal pneumonia. Due to increased wheezing and increased work of breathing, pulmonary consult was requested for further input. Patient unable to provide any history, information obtained from at bedside.
12/03, patient later developed episode of emesis with increased respiratory distress, requiring BIPAP and transfer to IMU. Patient was subsequently noted to have metapneumovirus and antibiotics were discontinued. He gradually improved and
pulmonary infectious disease service signed off.
12/08, patient noted to have increased wheezing again and pulmonary service was reconsulted
#1. Multifocal Pneumonia, felt to be related to metapneumovirus. With current worsening, superimposed infection certainly a concern however patient is otherwise afebrile and has a normal WBC count
-Metapneumovirus noted on extended viral panel: antibiotics stopped 12/05
-Repeat procalcitonin on 12/08 normal
-More recent respiratory symptoms on 12/08 related to pulmonary edema rather than pneumonia considering significant improvement in chest x-ray after diuresis.
#2. Acute bronchospasm, exacerbated by volume overload
-Responded very well to IV diuresis, steroids as well as scheduled DuoNeb
-No known h/o COPD/Asthma but has long standing smoking history, might have underlying COPD, out patient evaluation
-Breathing comfortably without any cough, shortness of breath or wheezing
-Follow-up chest x-ray showed significant improvement favoring pulmonary edema
#3. Paroxysmal SVT and Acute on chronic HFpEF
-Cardiology service on case
-Pulmonary edema significantly improved on follow-up x-ray today, patient received IV diuresis on 12/08, being switched to oral Lasix per cardiology service today
Other medical diagnoses:
-Parkinsonism
-Dementia
Total time spent on this consultation/encounter _35__ minutes which includes review of history, physical exam, medications, laboratory data, personal review of imaging, extensive review of outpatient records, discussion with care team and
respiratory therapy.
Data:
ECHO 12/2024: Normal biventricular size and systolic function without regional wall motion abnormality.
Moderate concentric left ventricular hypertrophy.
Grade II diastolic dysfunction suggestive of increased filling pressures.
Mild mitral regurgitation.
Mild aortic regurgitation.
Estimated PASP 40-45 mmHg with an estimated RA of 8 mmHg.
No prior study available for comparison.
CT Chest 12/2024: 1. SEVERE PNEUMONIA in the LEFT UPPER LOBE and LEFT LOWER LOBE.
2. Mild pneumonia in the right upper lobe.
3. Mild cardiomegaly.
4. Moderate calcific atherosclerotic plaque in the coronary arteries.
5. Severe calcific atherosclerotic plaque in the thoracic aorta.
6. 2.4 cm low-attenuation lesion in the liver containing peripheral calcification. Diagnostic possibilities are (1) a primary or metastatic hepatic tumor, (2) a hepatic abscess, or (3) a complex cyst or chronic intrahepatic hematoma.
Subjective Data
-
Date of Service:
Date of Service: December 09, 2024
Subjective:
Patient comfortably sitting in bed, in no acute distress.
Review of Systems
Genitourinary: Other (Denies any trouble breathing. No new symptoms reported.)
Objective Data
Data Reviewed
Vital Signs / I&O / Oxygen:
Vital Signs
Temp Pulse Resp BP Pulse Ox
97.7 F 64 18 134/69 94
12/09/24 07:18 12/09/24 11:19 12/09/24 11:19 12/09/24 11:00 12/09/24 11:19
Intake and Output
12/08/24 12/09/24 12/10/24
06:59 06:59 06:59
Intake Total 400 / 400
Output Total 525 / 525 1974 / 1974 100 / 100
Balance -525 / -525 -1575 / -1575 -100 / -100
SaO2 94
Nasal Cannula flow liters per 2
minute
Physical Exam
General: Comfortable
HEENT: Normocephalic
Cardiovascular: Regular Rhythm and Peripheral Edema (Resolved)
Respiratory: Wheeze (Wheezing completely resolved. No crackles on exam.)
GI: Soft and Non Distended
Neurology: Awake and Alert
Skin: Warm
Labs/Micro/Reports
Lab Data
12/09/24 04:52
12/09/24 04:52
--- NOTE | 2024-12-09 16:10 | W.PN.HOSP.TC ---
Today's Communication/Plan
-
Discharge planning
Assessment / Plan
Assessment / Plan
HPI: Patient is a pleasant 84 years old with history of dementia, parkinsonism who came to the ER with ambulatory dysfunction, chest x-ray shows no acute finding, urinalysis shows UTI admitted for sepsis and started Rocephin.
During hospitalization developed shortness of breath, coughing, wheezing and chest x-ray shows newly developed pneumonia, started on Rocephin and Zithromax.
Patient has increased work of breathing, seen by pulmonology, developed respiratory distress require upgrade to IMU and start BiPAP.
Antibiotic switched to vancomycin and Zosyn.
Assessment/plan
Sepsis secondary to Human Metapneumovirus pneumonia
Acute hypoxic respiratory failure
-Status post BiPAP, currently on room air
-Appreciate pulmonology input, IV steroids changed to oral steroids�recommend discharge on a taper
-Status post full course of empiric antibiotics to cover for bacterial superinfection, antibiotics stopped 4/
-Appreciate ID input, continue supportive care
Acute diastolic CHF
-Appreciate cardiology input, IV Lasix changed to oral Lasix
Paroxysmal SVTs
Secondary to underlying sepsis and respiratory distress.
Status post IV Cardizem drip, now heart rate controlled on oral Cardizem and oral metoprolol
Status post fall - acute on chronic ambulatory dysfunction
Denies hitting head.
Fall precautions.
PT/OT consulted in the ER who recommended SNF.
Social service for discharge planning.
HX dementia
Continue Aricept-Namenda
HX Parkinson disease
Continue Sinemet
CODE STATUS: Full code
DVT prophylaxis: Lovenox
Total time spent to see the patient on the floor, examine the patient, review data and lab results, discuss treatment plan with patient, nursing staff around 50 minutes.
Physical Exam
General: No acute distress
HEENT: Normocephalic, Atraumatic, EOMI, MMM
Respiratory: Bibasilar crackles
Cardiac: Normal S1/S2, Regular Rate and Rhythm
GI: Soft, Nontender, Nondistended, Normal Bowel Sounds
Extremities: No Clubbing, Cyanosis, or Edema
Neuro: Nonfocal/Grossly Intact
Anticipated Discharge: 24 - 48 hours
Subjective/Interval History
-
Date of Service: December 09, 2024
Patient denies shortness of breath, no recent chest pain. No fever, no vomiting.
Objective Data
-
Labs:
Laboratory Results
12/09/24
04:52
WBC 8.8
Hgb 12.5 L
Hct 36.8 L
Plt Count 256
Sodium 138
Potassium 4.2
Chloride 102
Carbon Dioxide 27
BUN 42 H
Creatinine 1.1
Glucose 142 H
Calcium 9.3
Vital Signs:
Vital Signs
Temp Pulse Resp BP Pulse Ox
97.9 F 62 18 131/62 94
12/09/24 11:44 12/09/24 16:00 12/09/24 16:00 12/09/24 16:00 12/09/24 11:19
I&O
12/08/24 12/09/24 12/10/24
06:59 06:59 06:59
Intake Total 400 / 400
Output Total 525 / 525 1974 / 1974 300 / 300
Balance -525 / -525 -1575 / -1575 -300 / -300
--- NOTE | 2024-12-09 16:46 | CM ---
Patient with Hx dementia, Parkinsons Dx, fall with Dx Sepsis secondary to pneumonia /UTI, HF, paroxysmal SVT. Room air. PT 12/06 recommends skilled rehab. OT 12/09 recommends skilled rehab.
Spoke with [facility]; no available bed this week.
Spoke with [facility]; no available bed next several days.
Spoke with [facility]; [facility] will be able to accept the patient tomorrow after insurance approval- she will text NPIs for auth.
Spoke with patient's Jenny; she agrees to [facility] tomorrow.
Plan SNF auth when updated PT notes are available.
Plan [facility] SNF once insurance auth is obtained.
--- NOTE | 2024-12-09 17:32 | PTCARENOTE ---
Patient oriented to self today, confused, tired. Bed and chair alarms on. at bedside. VSS. HR stable all shift. Will continue to closely monitor.
[2024-12-09] MEDS: XALATAN OPHTHALMIC SOLUTION 1 DROP BOTH EYES (18:15)
[2024-12-09] MEDS: LOVENOX 40 MG SC (18:15)
[2024-12-09] MEDS: COLACE 100 MG PO (21:19)
[2024-12-09] MEDS: ZOLOFT 50 MG PO (21:19)
--- NOTE | 2024-12-09 21:35 | PTCARENOTE ---
Assumed care of pt from dayshift RN, Pt aaox1 and sitting in chair. 97% on RA. Hygiene completed and LULÚ medications administered.
Verbal report provided to MOOSE Erickson. Pt transferred via wheelchair to room 2135. All belongings taken with patient.
--- NOTE | 2024-12-09 21:45 | PTCARENOTE ---
12/09: Pt transferred via wheelchair from imu. VSS. telemetry applied. pt walked to bed with rolling walker. pt oriented to room, callbell within reach.
--- NOTE | 2024-12-09 22:30 | PTCARENOTE ---
12/09: pt c/o chest pain. not new. pt gestured to ribs and below sternum. WINDER OPERATOR Alex Samayoa notified. Robitussin and tums given. Rt provided neb tx prn.
[2024-12-09] MEDS: TUMS CHEWABLE TABLET 200 MG PO (23:31)
[2024-12-10 03:28] VITALS: BP 139/73
[2024-12-10 05:34] VITALS: BMI 25.2
[2024-12-10 07:55] VITALS: BP 147/76
--- NOTE | 2024-12-10 08:05 | W.PN.CD ---
Today's Communication / Plan
-
-Now transitioned to Lasix 40 mg PO daily (was not on diuretics prior to admission).
-Continue diltiazem 120 mg once a day and Toprol XL 50 mg twice a day.
Impression / Plan
-
Acute hypoxic respiratory failure, improved
-Multifactorial due to pneumonia and HFpEF
-on ABx
-now off supplemental O2 and on room air
-Now transitioned to Lasix 40 mg PO daily (was not on diuretics prior to admission).
Acute on chronic HFpEF
-severe exacerbation requiring IV diuresis, frequent labs, and telemetry monitoring
-Now on PO Lasix as above.
paroxysmal SVT:
-TTE 12/05/24: LVEF 50-55%, moderate LVH, grade II DD, mild MR, mild AR, PASP 40-45
-Still with brief runs of PSVT, but improved overall.
-Continue diltiazem 120 mg once a day and Toprol XL 50 mg twice a day.
Dementia:
-on medical therapy
Parkinson's Disease:
-on medical therapy
Subjective: No major events overnight.
Physical Exam
Vital Signs/Labs
Vital Signs
Temp Pulse Resp BP Pulse Ox
98.0 F 69 18 139/73 97
12/10/24 03:28 12/10/24 03:28 12/10/24 03:28 12/10/24 03:28 12/10/24 03:28
12/09/24 12/10/24 12/11/24
06:59 06:59 06:59
Actual Weight 76.9 kg 77.383 kg
12/09/24 04:52
12/09/24 04:52
Magnesium 2.3 mg/dl (1.6-2.3) 12/09/24 04:52
12/04/24 12/05/24 12/09/24
03:50 04:19 04:52
Zse-W-Aapsctxkfdi Pept [id number] 1600
Physical Exam
Constitutional: No acute distress and Comfortable
EENT: Anicteric
Cardiovascular: Rhythm & rate is regular, Pedal edema is absent, Systolic murmur present (09/09) and S1S2 is normal
Respiratory: Respiratory effort normal and Rhonchi Present
GI: Soft
Neuro/Psych: Alert
Other: Skin (Warm, dry, intact)
Data Reviewed
-
Date of Service: December 10, 2024
Echo: Tracing Personally Visualized and interpreted (Normal LVEF; mild )
Labs: Labs Reviewed by me
--- NOTE | 2024-12-10 09:42 | W.PN.HOSP.TC ---
Today's Communication/Plan
-
Discharge to SNF today
Assessment / Plan
Assessment / Plan
HPI: Patient is a pleasant 84 years old with history of dementia, parkinsonism who came to the ER with ambulatory dysfunction, chest x-ray shows no acute finding, urinalysis shows UTI admitted for sepsis and started Rocephin.
During hospitalization developed shortness of breath, coughing, wheezing and chest x-ray shows newly developed pneumonia, started on Rocephin and Zithromax.
Patient has increased work of breathing, seen by pulmonology, developed respiratory distress require upgrade to IMU and start BiPAP.
Antibiotic switched to vancomycin and Zosyn.
Assessment/plan
Sepsis secondary to Human Metapneumovirus pneumonia
Acute hypoxic respiratory failure
-Status post BiPAP, currently on room air
-Appreciate pulmonology input, IV steroids changed to oral steroids�recommend discharge on a taper
-Status post full course of empiric antibiotics to cover for bacterial superinfection, antibiotics stopped 12/05
-Appreciate ID input, continue supportive care
-Cleared by ID and pulm for dc today
Acute diastolic CHF
-Appreciate cardiology input, IV Lasix changed to lasix 40 mg po daily
-F/u w/ usual visiting housekeeper outpt
Paroxysmal SVTs
Secondary to underlying sepsis and respiratory distress.
Status post IV Cardizem drip, now heart rate controlled on oral Cardizem and oral metoprolol
Status post fall - acute on chronic ambulatory dysfunction
Denies hitting head.
Fall precautions.
PT/OT consulted in the ER who recommended SNF.
Social service for discharge planning.
HX dementia
Continue Aricept-Namenda
HX Parkinson disease
Continue Sinemet
CODE STATUS: Full code
DVT prophylaxis: Lovenox
Updated at bedside 12/10
Physical Exam
General: No acute distress
HEENT: Normocephalic, Atraumatic, EOMI, MMM
Respiratory: Bibasilar crackles
Cardiac: Normal S1/S2, Regular Rate and Rhythm
GI: Soft, Nontender, Nondistended, Normal Bowel Sounds
Extremities: No Clubbing, Cyanosis, or Edema
Neuro: Nonfocal/Grossly Intact
Anticipated Discharge: Today
Subjective/Interval History
-
Date of Service: December 10, 2024
Denies CP/SOB/palp. No fever, no vomiting.
Objective Data
-
Vital Signs:
Vital Signs
Temp Pulse Resp BP Pulse Ox
97.9 F 60 18 147/76 96
12/10/24 07:55 12/10/24 07:55 12/10/24 07:55 12/10/24 07:55 12/10/24 07:55
I&O
12/09/24 12/10/24 12/11/24
06:59 06:59 06:59
Intake Total 400 / 400 240 / 240
Output Total 1974 / 1974 300 / 300
Balance -1575 / -1575 -60 / -60
--- NOTE | 2024-12-10 09:52 | CM ---
Addendum entered by Tanvi Alvarez 12/10/24 15:06:
Plan: patient for transfer to [facility] today at 6:30 pm via ambulance transport.
IMM reviewed over the phone with spouse.
[facility]
Report# [phone]

Addendum entered by Tanvi Alvarez 12/10/24 14:27:
Approved skilled rehab
Auth # [id number]
start date 12/10/24, NRD 12/16/24
updates to p# [phone]
Addendum entered by Tanvi Alvarez 12/10/24 11:39:
Auth initiated with Jr from [facility].
Case pended to [facility] for review.
Acute care Ambulance auth# [id number]
Original Note:
Patient accepted at [facility].
[facility] NPI# [id number]
Accepting MD: Bassem Marx NPI# [id number]
Await updated therapy notes, then will initiate insurance auth.
[2024-12-10] MEDS: SINEMET 25-100 2 TABLET PO ×2 (10:08→17:05)
[2024-12-10] MEDS: SENOKOT 17.2 MG PO (10:08)
[2024-12-10] MEDS: CARDIZEM CD 120 MG PO (10:08)
[2024-12-10] MEDS: TOPROL XL 50 MG PO (10:08)
[2024-12-10] MEDS: DELTASONE 30 MG PO (10:09)
[2024-12-10] MEDS: NAMENDA 10 MG PO (10:09)
[2024-12-10] MEDS: LASIX 40 MG PO (10:09)
[2024-12-10] MEDS: COLACE 200 MG PO (10:09)
--- NOTE | 2024-12-10 10:18 | W.PN.PUL3 ---
Today's Communication / Plan
-
-Prednisone last dose, 12/11
-Please prescribe as needed albuterol at discharge
-Pulmonary team will sign off, please call as needed. Outpatient follow-up with pulmonary clinic, information left in discharge section
Assessment
-
Patient is a84 y/o gentleman who was brought to the hospital for weakness and falls. He was noted to have Pneumonia and pyuria. He was started on Rocephin. Overnight, he became more short of breath with wheezing. CT was performed which was
suggestive of multifocal pneumonia. Due to increased wheezing and increased work of breathing, pulmonary consult was requested for further input. Patient unable to provide any history, information obtained from at bedside.
12/03, patient later developed episode of emesis with increased respiratory distress, requiring BIPAP and transfer to IMU. Patient was subsequently noted to have metapneumovirus and antibiotics were discontinued. He gradually improved and
pulmonary infectious disease service signed off.
12/08, patient noted to have increased wheezing again and pulmonary service was reconsulted
#1. Multifocal Pneumonia, felt to be related to metapneumovirus.
-Metapneumovirus noted on extended viral panel: antibiotics stopped 12/05
-Repeat procalcitonin on 12/08 normal
-More recent respiratory symptoms on 12/08 related to pulmonary edema rather than pneumonia considering significant improvement in chest x-ray after diuresis.
#2. Acute bronchospasm, exacerbated by volume overload
-Responded very well to IV diuresis, steroids as well as scheduled DuoNeb
-No known h/o COPD/Asthma but has long standing smoking history, might have underlying COPD, out patient evaluation
-Breathing comfortably without any cough, shortness of breath or wheezing
-Follow-up chest x-ray showed significant improvement favoring pulmonary edema
-Prednisone last dose 12/11. PRN Albuterol at d/c. Put patient follow up with Pulm clinic to evaluate of any inaher therapy needed going forward.
#3. Paroxysmal SVT and Acute on chronic HFpEF
-Cardiology service on case
-Pulmonary edema significantly improved on follow-up x-ray today, patient received IV diuresis on 12/08, on PO lasix now
Other medical diagnoses:
-Parkinsonism
-Dementia
Total time spent on this consultation/encounter _32__ minutes which includes review of history, physical exam, medications, laboratory data, personal review of imaging, extensive review of outpatient records, discussion with care team and
respiratory therapy.
Data:
ECHO 12/2024: Normal biventricular size and systolic function without regional wall motion abnormality.
Moderate concentric left ventricular hypertrophy.
Grade II diastolic dysfunction suggestive of increased filling pressures.
Mild mitral regurgitation.
Mild aortic regurgitation.
Estimated PASP 40-45 mmHg with an estimated RA of 8 mmHg.
No prior study available for comparison.
CT Chest 12/2024: 1. SEVERE PNEUMONIA in the LEFT UPPER LOBE and LEFT LOWER LOBE.
2. Mild pneumonia in the right upper lobe.
3. Mild cardiomegaly.
4. Moderate calcific atherosclerotic plaque in the coronary arteries.
5. Severe calcific atherosclerotic plaque in the thoracic aorta.
6. 2.4 cm low-attenuation lesion in the liver containing peripheral calcification. Diagnostic possibilities are (1) a primary or metastatic hepatic tumor, (2) a hepatic abscess, or (3) a complex cyst or chronic intrahepatic hematoma.
Subjective Data
-
Date of Service:
Date of Service: December 10, 2024
Subjective:
Patient comfortably lying in bed, no acute distress. Breathing comfortably on room air.
Review of Systems
Genitourinary: Other (No new symptoms reported)
Objective Data
Data Reviewed
Vital Signs / I&O / Oxygen:
Vital Signs
Temp Pulse Resp BP Pulse Ox
97.9 F 60 18 147/76 96
12/10/24 07:55 12/10/24 10:08 12/10/24 07:55 12/10/24 10:08 12/10/24 07:55
Intake and Output
12/09/24 12/10/24 12/11/24
06:59 06:59 06:59
Intake Total 400 / 400 240 / 240
Output Total 1974 300 / 300
Balance -1575 / -1575 -60 / -60
SaO2 96
Nasal Cannula flow liters per 2
minute
Physical Exam
General: Comfortable
HEENT: Normocephalic
Cardiovascular: Regular Rhythm and Peripheral Edema (Resolved)
Respiratory: Wheeze (Wheezing completely resolved. No crackles on exam.)
GI: Soft and Non Distended
Neurology: Awake and Alert
Skin: Warm
Labs/Micro/Reports
Lab Data
12/09/24 04:52
12/09/24 04:52
[2024-12-10] MEDS: THERAGRAN 1 TABLET PO (10:19)
[2024-12-10 10:50] VITALS: BP 126/58; PULSE 61
[2024-12-10 11:22] VITALS: BP 121/58
[2024-12-10 15:40] VITALS: BP 134/78
[2024-12-10] MEDS: LOVENOX 40 MG SC (17:02)
== END 2024-12-10 19:16 | DRG 871 ==
LOC: 2 NORTH 08:10
PROVIDERS: Emergency Medicine; General Practice; Nurse Practitioner; Nurse Practitioner Family; ADMITTING PHYSICIAN Internal Medicine; ATTENDING PHYSICIAN Family Medicine; CONSULT PHYSICIAN Internal Medicine; CONSULT PHYSICIAN Internal Medicine Cardiovascular Disease; EMERGENCY PHYSICIAN Emergency Medicine; FAMILY PHYSICIAN Family Medicine; OTHER PHYSICIAN Internal Medicine Infectious Disease
PROC: 5A09357 Assistance with Respiratory Ventilation, Less than 24 Consecutive Hours, Continuous Positive Airway Pressure (ICD-10-PCS; 2024-12-03)
DX: A41.9 Sepsis, unspecified organism (principal); I50.33 Acute on chronic diastolic (congestive) heart failure; J12.3 Human metapneumovirus pneumonia; J96.01 Acute respiratory failure with hypoxia; N39.0 Urinary tract infection, site not specified; I5A Non-ischemic myocardial injury (non-traumatic); W01.0XXA Fall on same level from slipping, tripping and stumbling without subsequent striking against object, initial encounter; G20.A1 Parkinson's disease without dyskinesia, without mention of fluctuations; F02.80 Dementia in other diseases classified elsewhere, unspecified severity, without behavioral disturbance, psychotic disturbance, mood disturbance, and anxiety; R29.6 Repeated falls; G35 Multiple sclerosis; Z79.899 Other long term (current) drug therapy; J98.01 Acute bronchospasm; Z87.891 Personal history of nicotine dependence; Z96.643 Presence of artificial hip joint, bilateral; Z98.1 Arthrodesis status; Z11.52 Encounter for screening for COVID-19
CPT/HCPCS: 71045; 71046; 71250; 80048; 80053; 81003; 81015; 82962; 83735; 83880; 84145; 84443; 84484; 85025; 85027; 87040; 87070; 87086; 87502; 87633; 87811; 87899; 92526; 92610; 93005; 93306; 94640; 94660; 97116; 97167; 97530; 97535; 99285